=== PATIENT | female | born 1965 | race Caucasian/White ===

== ENCOUNTER → 2017-10-14 11:15 | Outpatient (CLI) | payer OTHER, SELFPAY ==
[2017-10-14 11:29] LABS: Absolute Neutrophil Count 3.4 X10^3/uL (2.0-7.7); Basophil% 0.2 % (0-1); Eosinophils% 1.2 % (0-5); Hemoglobin 17.1 g/dl (12.0-15.0); Lymphocyte # 2.12 X10^3/ul (4.0); Lymphocyte % 35.8 % (19-41); Mean Corp Hgb Conc 34.2 g/gl (32-36); Mean Corpuscular Volume 90.6 fL (81-99); Mean Platelet Vol. 10.9 fl (6.2-12.0); Monocyte% 5.4 % (0-10); Neutrophil % 57.4 % (47-70); Platelet Count 248 K/mm3 (150-450); RBC Distribution Width CV 12.6 % (11.6-14.6); RBC Distribution Width SD 41.6 fl (35.1-43.9); Red Blood Count 5.52 M/mm3 (4.2-5.4); White Blood Count 5.9 K/mm3 (4.4-11.0)
[2017-10-14 11:30] LABS: Absolute Lymphocyte Count 2.12 X10^3/ul (0.83-4.51); Basophil# 0.01 X10^3/uL; Eosinophil# 0.07 X10^3/uL; Monocyte# 0.32 X10^3/uL
[2017-10-14 11:34] LABS: ALB/GLOB Ratio 1.5 RATIO (0.9-2.4); AST(SGOT) 22 U/L (15-37); Alanine Aminotransfer ALT/SGPT 34 U/L (13-56); Albumin, Serum 4.6 g/dL (3.2-5.0); Alkaline Phosphatase 96 U/L (45-117); Anion Gap 6 (5-15); BUN 20 mg/dL (7-18); BUN/Creat Ratio 17.4 RATIO (10-20); Calcium,Total 9.6 mg/dL (8.5-10.1); Chloride 100 mmol/L (98-107); Creatinine, Serum 1.15 mg/dL (0.55-1.02); EST Glomerular Filtration Rate 52 mL/min (>60); Est Glom Filt Rate - Afr Amer 63 mL/min (>60); Globulin 3.1 g/dL (2.2-4.2); Glucose 94 mg/dL (74-106); Magnesium 2.4 mg/dL (1.6-2.6); POSITIVE COUNT NO; POSITIVE DIFFERENTIAL NO; POSITIVE MORPHOLOGY NO; Potassium 5.1 mmol/L (3.5-5.1); Protein, Total 7.7 g/dL (6.4-8.2); Sodium Level 134 mmol/L (136-145)
== END ==
PROVIDERS: Family Provider Internal Medicine; PCP Internal Medicine; Visit Provider Internal Medicine
DX: T88.7XXA Unspecified adverse effect of drug or medicament, initial encounter (principal); R00.2 Palpitations
CPT/HCPCS: 80053; 83735; 85025

== ENCOUNTER → 2018-01-09 07:48 | Outpatient (CLI) | payer OTHER, SELFPAY ==
--- NOTE | 2018-01-09 07:57 | CT_ITS ---
STUDY: CARDIAC CALCIUM SCORING - CT CHEST REASON FOR EXAM: Female, 53 years old. Screening. RADIATION DOSAGE (If Supplied By Facility): CTDIvol = ( 8.99 ) mGy, DLP = ( 179.71 ) mGycm TECHNIQUE: Axial non-enhanced images were acquired through the heart for the sole purpose of measuring coronary artery calcium. Individualized dose optimization techniques were used for this CT. COMPARISON: None. FINDINGS: Please see the patient's medical record for a personalized calcium score. The heart and pericardium are within normal limits. The visualized lungs are clear. There is a small hiatal hernia noted. Images through the upper abdomen demonstrate fatty infiltration of the liver. CT/Limited Chest CT w/CCTA IMPRESSION: Please see the patient's medical record for a personalized calcium score. Clear lungs. Small hiatal hernia. Fatty liver. Please go to: [email or web address] , for a description of the calculator. Electronically Signed: Nahid Ireland, at 17:00 EDT Tel , Service support ,
[2018-01-09 08:05] VITALS: BP 108/57; PULSE 61; RESP 16; O2SAT 97; BMI 30.9
[2018-01-09 08:26] VITALS: PULSE 60
--- NOTE | 2018-01-09 09:09 | BI_ITS ---
MAMMOGRAPHY - BILATERAL SCREENING 3-D SHERIN SYNTHESIS REASON FOR EXAM: Female, 53 years old. Bilateral Screening 3-D tomosynthesis PERTINENT HISTORY: No significant family history, previous reduction surgery. TECHNIQUE: 2-D mammograms and 3-D Sherin synthesis of the breast (s) were performed. CAD was performed. COMPARISON: 09/08/2016 FINDINGS: The breast composition is composed of scattered fibroglandular density. Scattered benign calcifications are seen. No dense spiculated masses or suspicious microcalcifications are identified. No architectural distortion is identified. There is no skin thickening or retraction. There has been no significant change since the prior study. BI/SCREENING MAMM (CAD), BILAT IMPRESSION: No mammographic signs of malignancy. Routine yearly mammograms recommended. ASSESSMENT CATEGORY: BIRADS Category 1: Negative. A letter regarding these results will be sent to the patient by the facility within 30 days. FOLLOW UP RECOMMENDATION: Yearly follow up mammogram recommended. (A) Approximately 10% of breast cancers are not detected by mammography. A normal mammogram should not delay biopsy of a clinically suspicious abnormality. Electronically Signed: Yoel Castillo MD at 8:09 EDT , Service support ,
== END ==
PROVIDERS: Family Provider Internal Medicine; PCP Internal Medicine; Visit Provider Internal Medicine
DX: E78.5 Hyperlipidemia, unspecified (principal); Z12.31 Encounter for screening mammogram for malignant neoplasm of breast; K44.9 Diaphragmatic hernia without obstruction or gangrene; K76.0 Fatty (change of) liver, not elsewhere classified
CPT/HCPCS: 75571; 76380; 77063; 77067

== ENCOUNTER → 2019-01-24 | Outpatient (CLI) | payer OTHER, SELFPAY ==
--- NOTE | 2019-01-24 09:08 | US_ITS ---
STUDY: ULTRASOUND OF THE FEMALE PELVIS - COMPLETE REASON FOR EXAM: Female, 54 years old. Postmenopausal bleeding. LMP: The patient is postmenopausal. TECHNIQUE: Transabdominal and Transvaginal TECHNICAL QUALITY: Adequate. COMPARISON: Comparison is made with prior examination dated October 30, 2012. FINDINGS: The uterus is anteverted and is in a midline position. The uterus measures 7.8 cm x 5.9 cm x 3.9 cm. There is a Nabothian cyst of the cervix. The endometrium measures 3.0 mm in thickness, and is hyperechoic. There is no demonstrated endometrial mass. There is no demonstrated myometrial mass. I.U.D. - The patient does not have an I.U.D. The right ovary is visualized. The right ovary measures 2.3 cm x 2.5 cm x 2.1 cm. Within the right ovary, there is a 2.1 cm x 1.8 signed by 1.5 cm cyst. This is a simple cyst. There is no visualized right adnexal mass or complex lesion. There is normal arterial and normal venous vascularity. The left ovary is visualized. The left ovary measures 2.6 cm x 2.6 cm x 1.2 cm. There is no left ovarian cyst or ovarian mass. There is no visualized left adnexal mass or complex lesion. There is normal arterial and normal venous vascularity. There is no fluid in the cul-de-sac. The pre void volume of the bladder was 246 ml. Polycystic ovary disease: No. US/Pelvic (Non ) IMPRESSION: 2.1 cm x 1.8 cm x 1.5 cm cyst in the right ovary. This is essentially unchanged as compared to prior study. Electronically Signed: Kem Pool, at 9:03 EDT , Service support ,
--- NOTE | 2019-01-24 09:21 | US_ITS ---
STUDY: ULTRASOUND OF THE FEMALE PELVIS - COMPLETE REASON FOR EXAM: Female, 54 years old. Postmenopausal bleeding. LMP: The patient is postmenopausal. TECHNIQUE: Transabdominal and Transvaginal TECHNICAL QUALITY: Adequate. COMPARISON: Comparison is made with prior examination dated October 30, 2012. FINDINGS: The uterus is anteverted and is in a midline position. The uterus measures 7.8 cm x 5.9 cm x 3.9 cm. There is a Nabothian cyst of the cervix. The endometrium measures 3.0 mm in thickness, and is hyperechoic. There is no demonstrated endometrial mass. There is no demonstrated myometrial mass. I.U.D. - The patient does not have an I.U.D. The right ovary is visualized. The right ovary measures 2.3 cm x 2.5 cm x 2.1 cm. Within the right ovary, there is a 2.1 cm x 1.8 signed by 1.5 cm cyst. This is a simple cyst. There is no visualized right adnexal mass or complex lesion. There is normal arterial and normal venous vascularity. The left ovary is visualized. The left ovary measures 2.6 cm x 2.6 cm x 1.2 cm. There is no left ovarian cyst or ovarian mass. There is no visualized left adnexal mass or complex lesion. There is normal arterial and normal venous vascularity. There is no fluid in the cul-de-sac. The pre void volume of the bladder was 246 ml. Polycystic ovary disease: No. US/Transvaginal Non- IMPRESSION: 2.1 cm x 1.8 cm x 1.5 cm cyst in the right ovary. This is essentially unchanged as compared to prior study. Electronically Signed: Kem Pool, at 9:03 EDT , Service support ,
== END | disposition home or self-care (01) ==
PROVIDERS: Family Provider Internal Medicine; PCP Internal Medicine; Referring Provider Internal Medicine; Visit Provider Internal Medicine
DX: N95.0 Postmenopausal bleeding (principal)
CPT/HCPCS: 76830; 76856

== ENCOUNTER → 2019-02-26 16:23 | Outpatient (CLI) | payer OTHER, SELFPAY ==
--- NOTE | 2019-02-26 | EMB_PTH ---
PATIENT: JESSIE RAYMOND LOC: [facility] U#:[id number] AGE/SX: 60/F ROOM: RE02/26/[address]: Dr. Veena Blevins MD : 1965 BED: DIS: SPEC #: [id number] RECD: 02/26/19 16:04 STATUS: PRASHANTH ANDRÉS #: [id number] YANE: 02/26/19 00:[address]: Veena Blevins DEPT: SURGICAL PATHOLOGY RECD BY: Triston Nesbitt ENTERED: 02/27/19 08:59 SP TYPE: ENDOM BX/C GUME DR: Dr. Natasha Chance MD Tissues: Endometrium, NOS Procedures: Surgery Specimen Level IV HEADER OPERATION: Endometrial biopsy PRE-OP DIAGNOSIS: Abnormal uterine bleeding TISSUE SUBMITTED: Endometrial biopsy MICROSCOPIC DIAGNOSIS Endometrial biopsy: A fragment of benign endocervical mucosa, consistent with benign endocervical polyp. Fragments of mucoid tissue. Endometrial tissue is not identified in the submitted specimen. ARTUR:ashvin 02/28/19 COMMENT Correlation with clinical findings and appropriate follow up are necessary. Repeat biopsy is suggested if clinically indicated. MICROSCOPIC DESCRIPTION Slides are reviewed. GROSS DESCRIPTION Received is one container labeled with the patient's name and not further designated. The specimen consists of light christianson mucoid material aggregating to 2 x 2 x 0.2 cm. The specimen is totally submitted in one cassette. / AM:ashvin 02/27/19 TC:5 CPT: 53557
[2019-02-26 13:32] VITALS: BMI 30.9
== END ==
PROVIDERS: Family Provider Internal Medicine; PCP Internal Medicine; Referring Provider Obstetrics & Gynecology; Visit Provider Obstetrics & Gynecology
DX: N93.9 Abnormal uterine and vaginal bleeding, unspecified (principal)
CPT/HCPCS: 88305

== ENCOUNTER → 2019-04-04 13:59 | Outpatient (CLI) | payer OTHER, SELFPAY ==
[2019-02-26 13:32] VITALS: BMI 30.9
--- NOTE | 2019-04-04 14:04 | BI_ITS ---
MAMMOGRAPHY - BILATERAL DIAGNOSTIC REASON FOR EXAM: Female, 54 years old. Bilateral breast tenderness. PERTINENT HISTORY: Non-contributory. History of prior bilateral breast reduction surgery. TECHNIQUE: Digital bilateral breast lidia (3D mammographic acquisition) in the CC and MLO projections. 2-D mediolateral oblique (MLO) and craniocaudad (CC) views of both breasts were obtained. CAD: Full Field Digital Mammography with Computer Added Detection was performed. COMPARISON: Comparison is made with prior study dated January 09, 2018 and September 08, 2016. FINDINGS: Breast Composition: There are scattered areas of fibroglandular density. There are no dominant masses or suspicious calcifications. Stable asymmetry of breast tissue or more breast tissue is seen in the upper outer quadrant of the right breast as compared to the left side. This is unchanged. No other significant abnormalities are identified. There has been no significant change since the prior study. BI/DIAG MAMM W/CAD, BILAT IMPRESSION: Stable bilateral diagnostic mammogram. One year follow-up recommended. (A) ASSESSMENT CATEGORY: BIRADS Category 2: Benign. A letter regarding these results will be sent to the patient by the facility within 30 days. Approximately 10% of breast cancers are not detected by mammography. A normal mammogram should not delay biopsy of a clinically suspicious abnormality. Electronically Signed: Kem Pool, at 15:41 EDT , Service support ,
--- NOTE | 2019-04-04 14:05 | US_ITS ---
STUDY: ULTRASOUND BREAST - RIGHT REASON FOR EXAM: Female, 54 years old. Right axillary swelling. TECHNIQUE: Axial and longitudinal images of the RIGHT breast were performed with a high resolution ultrasound transducer. COMPARISON: Comparison is made with prior mammogram done earlier in the day. FINDINGS: RIGHT Breast: The right axillary and right retroareolar regions were examined by ultrasound. There is a 2.3 cm x 2.3 cm x 0.9 cm hypoechoic nodule with central increased echotexture suggestive of a benign appearing lymph node in the right axillary region. IMPRESSION: Findings suggestive of a 2.3 cm x 2.3 cm x 0.9 cm benign-appearing lymph node in the right axilla. ASSESSMENT CATEGORY: BIRADS Category 2: Benign. A letter regarding these results will be sent to the patient by the facility within 30 days. Electronically Signed: Kem Pool, at 9:01 EDT , Service support , STUDY: ULTRASOUND BREAST - LEFT REASON FOR EXAM: Female, 54 years old. Painful left breast. TECHNIQUE: Axial and longitudinal images of the LEFT breast were performed with a high resolution ultrasound transducer. COMPARISON: Comparison is made with prior mammogram done earlier in the day. FINDINGS: LEFT Breast: The upper inner quadrant of the left breast was examined by ultrasound. There is a homogeneous fibroglandular tissue. No sonographic abnormality is seen. US/Breast Limited Unilateral IMPRESSION: No sonographic abnormality is seen. ASSESSMENT CATEGORY: BIRADS Category 1: Negative. A letter regarding these results will be sent to the patient by the facility within 30 days. Electronically Signed: Kem Pool, at 9:03 EDT , Service support ,
== END ==
PROVIDERS: Family Provider Internal Medicine; PCP Internal Medicine; Referring Provider Internal Medicine; Visit Provider Internal Medicine
DX: N64.4 Mastodynia (principal); N63.20 Unspecified lump in the left breast, unspecified quadrant; M79.89 Other specified soft tissue disorders
CPT/HCPCS: 76642; 77062; 77066; G0279

== ENCOUNTER → 2019-07-02 09:31 | Outpatient (CLI) | payer OTHER, SELFPAY ==
[2019-02-26 13:32] VITALS: BMI 30.9
--- NOTE | 2019-07-02 09:39 | RAD_ITS ---
HISTORY: LEFT LATERAL RIB PAIN DUE TO COUGHING EXAM: XR Chest 2 Views: COMPARISON: None FINDINGS: # of images incl. paperwork: 2 Lungs are clear. Heart is not enlarged. No acute osseous pathology perceived. Pulmonary vascularity is distinct. No effusions. RAD/Chest PA and Lateral IMPRESSION: Normal. at 0357 Reported and signed by: Salinas Díaz MD Electronically Signed: Salinas Díaz MD at 3:56 EST Tel , Service support ,
--- NOTE | 2019-07-02 09:40 | RAD_ITS ---
HISTORY: Left lateral rib pain after coughing. 4 views of the left ribs. Comparison study is a limited chest CT from January 09, 2018 Findings: 4 views of the left ribs were obtained. No acute rib fracture. No pleural fluid or pneumothorax. RAD/Ribs Unil 2V No CXR IMPRESSION: No acute fracture of left ribs. at 0359 Reported and signed by: Salinas Díaz MD Electronically Signed: Salinas Díaz MD at 3:58 EST Tel , Service support ,
== END ==
PROVIDERS: Family Provider Internal Medicine; PCP Internal Medicine; Referring Provider Internal Medicine; Visit Provider Internal Medicine
DX: R07.81 Pleurodynia (principal); R05 Cough
CPT/HCPCS: 71046; 71100

== ENCOUNTER → 2019-08-29 07:25 | Outpatient (CLI) | payer OTHER, SELFPAY ==
[2019-07-31 12:20] VITALS: BMI 31.8
--- NOTE | 2019-08-29 07:28 | MRI_ITS ---
STUDY: MRI LUMBAR SPINE WITHOUT CONTRAST REASON FOR EXAM: Female, 54 years old. Low back pain TECHNIQUE: Standardized fat and water weighted pulse sequences were obtained in the sagittal and axial planes. COMPARISON: July 26, 2019 FINDINGS: lumbar spine is intact and aligned. Marrow, paraspinous soft tissues and SI joints are unremarkable. There is L1-L2 disc degeneration. Conus medullaris terminates at the appropriate level with unremarkable cauda equina. L5-S1 has a large central disc extrusion with minor degree of compression of the thecal sac. There is left lateral recess stenosis and proximity of herniated disc material to both left and right S1 traversing nerve roots. Foramina are patent bilaterally. Remainder of the thecal sac is patent. MRI/Spine Lumbar (Routine) IMPRESSION: 1. Large L5-S1 central disc extrusion with left S1 nerve root compression in the lateral recess. Electronically Signed: Heather Cortez, at 17:35 EDT Tel , Service support ,
== END ==
PROVIDERS: PCP Internal Medicine; Referring Provider Chiropractor; Visit Provider Chiropractor
DX: M54.16 Radiculopathy, lumbar region (principal)
CPT/HCPCS: 72148

== ENCOUNTER 2019-11-28 08:39 | Outpatient (RCR) | payer OTHER, SELFPAY ==
[2019-11-27 09:29] VITALS: BMI 30.9
--- NOTE | 2019-11-28 10:01 | HP.PTEVAL_ITS ---
Patient's Visit Information JESSIE RAYMOND is a 54 year old F referred to Physical Therapy by Dr. Alina Ramos MD with a diagnosis of Lumbar Radiculopathy. Date of Evaluation: 11/28/19 Physical Therapist: Steffanie Veras DPT - Visit Plan Frequency: 1x/Week Duration: 2 Weeks Plan: Home Exercises Program in the pool - Subjective Patient reports that she sneezed and she was assisted bent over and she felt something go Thanksgiving. Has had an x-ray, MRI and chiropractic. Trying to schedule surgery- thinking about a month out. Is going to daughters pool- she can go daily- wants a home program to perform in the pool. Pain at its worst: 8/10 - radiates down her left LE. Agg: standing, sitting, bending, anything Eases: pool and changing positions- massage. Best: 2-3/10 on a good day. Much better in the AM compared to the PT. Describes the pain as dull and achy and sharp shooting- Pain is located on only on the left side but does have muscle spasms across the entire back. Plans to have surgery at [facility]. Prior to accident very active ride horses- has 12 grandchildren that keep her very active- is not currently carrying grandchildre but is unable due to back issues. N/T down the left leg that comes and goes- mostly towards the end of the day. Work: does not work outside of her home. Sleep: meds to help but yes its hard to get comfortable- side sleeper on the right. PMHx: asthma Meds: inhaler as needed - Objective Posture: severe guarding- forwards posture-unable to remain fully erect. Gait: antalgic- decreased stance on the left LE- poor heel/toe pattern and had to stop multiple times due to pain. HR/TR: able with pain. SLS: able for 15 then LOB. ROM: unable due to pain- all motions limited by 90%. Strength:Core: fair minus, LE: 4+/5 throughout with pain testing left LE. Special Test: slump left positive SLR: positive right. Challenged to complete objective evaluation as pain was increased with all mobility - Goals Goal 1:: Patient will be I with HEP and progression Goal Time Frame: 4-6 Weeks - Rehabilitation Potential Physical Therapy Diagnosis: Patient presents with hypmobility- she has decreased rom, strength, flex and muscular endurance leading to poor posture and increased pain with all ADL's. Rehabilitation Potential: Fair - Anticipated Interventions Patient/Client Instruction: Educate patient on: Benefits of Fitness Program Therapeutic Exercise to Include: Strength training, Endurance training, Balance training, Coordination, Agility training, Body mechanics, Postural training, Flexibilty training, Gait and locomotor training, Neuromotor development, In an aquatic setting, Passive ROM, Active ROM, Dynamic Lumbar Stabilization For the Purpose of:: To improve muscle performance and motor function Thank you for the opportunity to evaluate your patient. For Medicare and Medicare HMO plans, please review the plan of care and approve it. It will need to be FAXED BACK to us at [phone] for Medicare purposes. For Medicare only, by signing this I certify the plan of care. Please let me know if there are questions or concerns regarding this plan of care. Physician Signature:_ Date:
== END 2019-11-28 19:00 | disposition home or self-care (01) ==
LOC: PT 08:39
PROVIDERS: PCP Internal Medicine; Referring Provider Orthopaedic Surgery; Visit Provider Orthopaedic Surgery
DX: M54.16 Radiculopathy, lumbar region (principal)
CPT/HCPCS: 97113; 97161

== ENCOUNTER 2020-01-01 19:27 | Observation (INO) | payer OTHER, SELFPAY ==
[2019-11-27 09:29] VITALS: BMI 30.9
[2019-12-27 10:51] LABS: Bacteria 0 SEEN /hpf (None Seen); Red Blood Cells-Urine 0 SEEN /hpf (0-5)
[2019-12-27 11:36] LABS: Color, Urine Yellow (Yellow); Glucose, Dipstick Normal (Normal); Ketone-Dipstick Negative (Negative); Leukocyte Esterase-Dipstick 25 /ul (Negative); Nitrite-Dipstick Negative (Negative); Occult Blood-Urine Negative /ul (Negative); Protein-Dipstick Negative (Negative); Specific Gravity, Urine 1.015 (1.002-1.030); Urine Bilirubin Dipstick Negative (Negative); Urine Clarity Clear (Clear); Urine Urobilinogen Normal (Normal)
[2019-12-27 11:42] LABS: Mucous, Urine 1+ /hpf (<or=2+); Squamous Epithelial Cells - UA 0-5 SEEN /hpf (5-10); White Blood Cells 0-5 SEEN /hpf (0-5)
[2019-12-27 13:11] LABS: Prothrombin Time (Protime)PT. 12.2 SECONDS (11.7-14.9)
[2019-12-27 13:12] LABS: Partial Thromboplast Time 25.2 Seconds (24.1-36.2)
[2020-01-01] VITALS (16 sets, daily range): BP systolic 108–159; BP diastolic 48–86; PULSE 78–108; RESP 16; TEMP 36.1–37.3; O2SAT 93–99; BMI 32.3
[2020-01-01] MEDS: Lactated Ringers 1,000 ML 100 ML IV ×2 (11:58→16:39)
[2020-01-01] MEDS: Cefazolin 2 GM in 0.9% Normal Saline 100 ML IV (12:30)
--- NOTE | 2020-01-01 12:30 | DISC_PTH ---
PATIENT: JESSIE RAYMOND LOC: [facility] U#:[id number] AGE/SX: 54/F ROOM: AZ312 RE01/01/[address]: Dr. Alina Ramos MD : 1965 BED: 1 DIS: 01/03/2020 SPEC #: [id number] RECD: 01/01/20 15:55 STATUS: PRASHANTH REShemar #: [id number] YANE: 01/01/20 12:[address]: Alina Ramos DEPT: SURGICAL PATHOLOGY RECD BY: Triston Nesbitt ENTERED: 01/02/20 11:10 SP TYPE: DISC OTHR DR: MD Dr. Natasha Dias MD Tissues: Intervertebral disc, NOS Procedures: Decalcification bone/plaque Surgery Specimen Level III HEADER OPERATION: Microdiscectomy L5-S1 PRE-OP DIAGNOSIS: Lumbar radiculopathy TISSUE SUBMITTED: Left L5-S1 disc MICROSCOPIC DIAGNOSIS L5-S1 disc: Pieces of fibrocartilage and hyaline cartilage with reactive changes, clinically lumbar radiculopathy. ARTUR:ashvin 01/07/20 MICROSCOPIC DESCRIPTION Slides are reviewed. GROSS DESCRIPTION Received in fixative is one container labeled with the patient's name and designated L5-S1 disc. The specimen consists of multiple fragments of christianson, indurated tissue mixed with possible fragments of bone that in aggregate measure 2.5 x 2.5 x 0.3 cm. The specimen is totally submitted in one cassette after decalcification. / ARTUR:ashvin 01/02/20 TC:5 CPT: 43773, [id number]
--- NOTE | 2020-01-01 12:30 | RAD_ITS ---
PROCEDURE: L5-S1 discectomy. DATE OF EXAMINATION: January 01, 2020 INDICATION: Female, 54 years old. Low back pain. FLUOROSCOPY TIME (if supplied): (14 seconds) minutes/seconds Metallic probe is seen overlying the posterior aspect of the L5-S1 level. RAD/Spine 1 View Any Level IMPRESSION: Metallic probe overlying the posterior aspect of the L5-S1 disc space level. Electronically Signed: Kem Pool, at 9:16 EDT , Service support ,
[2020-01-01] MEDS: THROMBIN (RECOMBINANT) 20,000 UNIT VIAL 20000 UNIT TOPICAL (13:26)
--- NOTE | 2020-01-01 14:45 | PCM.OPRPT ---
Problem List (1) Lumbar radiculopathy Status: Acute Report of Operation Date of Procedure: 01/01/20 Pre-Operative Diagnosis: left L5-S1 disc herniation Post-Operative Diagnosis: left L5-S1 disc herniation Surgery/Procedure Performed:: left L5-S1 microdiscectomy Description of Surgical Findings:: Operative Report DATE PERFORMED: 01/01/2020 PREOPERATIVE DIAGNOSIS: left L5-S1 paracentral disk protrusion with left S1 radiculopathy. POSTOPERATIVE DIAGNOSIS: eft L5-S1 paracentral disk protrusion with left S1 radiculopathy. PROCEDURES: 1. left L5-S1 microdiskectomy. 2. Use of intraoperative microscope. 3. Use of intraoperative fluoroscopy. SURGEON: Alina Ramos MD. RADIATION CONTROL TECHNICIAN: first shannan Serna. ANESTHESIA: General. ESTIMATED BLOOD LOSS: Minimal/ DRAINS: None. COMPLICATIONS: None INDICATIONS FOR PROCEDURE: Ms. Hill is a 54-year-old female, who presents with back pain and left S1 radiculopathy. His preoperative imaging demonstrated a left L5-S1 paracentral disk protrusion with displacement of the left S1 traversing nerve root. She has failed nonoperative treatment to include physical therapy and medications. Given she has been refractory to conservative treatment and is significantly affected in her quality of life, a left L5-S1 microdiskectomy was recommended. The patient agreed to comply with the treatment plan formulated. DESCRIPTION OF PROCEDURE: The patient was correctly identified as Lisa Hill, in the preoperative holding area. Consent was verified. All questions were answered. The risks and benefits of the procedure including, but not limited to pain, infection, bleeding, failure of the operation, need for reoperation, damage to nerve, tendon, vessel, muscle; risk of anesthesia, risk of durotomy, reherniation, risk of paralysis, instability, continued pain, DVT/PE, and blindness were discussed in detail. The patient agreed to comply with the treatment plan. The surgical site was marked. She was taken to operating suite 1, where she underwent general anesthesia by anesthesia colleagues uneventfully. Preoperative antibiotics were initiated. BI hose and SCDs were placed on bilateral lower extremities for DVT prophylaxis. The patient was then placed prone on the open Asa frame with a sling. All bony prominences were well padded. Her neck was ensured in the neutral position. His back was then sterilely prepped and draped in the usual sterile fashion. A surgical pause was performed to confirm the patient and procedure. The operation was then begun. A spinal needle was placed in the area of L5-S1 interspace. Intraoperative fluoroscopy confirmed the operative level. A midline longitudinal incision was then made down to the subcutaneous tissue to the lumbodorsal fascia. This was cleared off the left-hand side. A full-thickness incision was then made on the left side of midline. A subperiosteal dissection was then performed to dissect the paraspinal musculature off the posterior midline structures. A self-retaining tube was then placed over the L5-S1 interspace. Intraoperative fluoroscopy was obtained to confirm the operative level. The microscope was then brought in for the remainder of the procedure. The inferior edge of the L5 lamina was identified. The ligamentum flavum was lifted up off the leading edge of the S1 lamina and the inferolateral portion of the L5 lamina was resected with a Kerrison rongeur. The ligamentum flavum was then removed in its entirety. The traversing S1 nerve root was noted to be very vascular and hyperemic. The nerve root was then gently retracted medially and a disk protrusion was encountered. A [place] 4 was used to violate the pseudomembrane. Loose fragments of the disk were then resected with a micropituitary. The disk was then irrigated and all loose fragments were then resected. The wound was then thoroughly irrigated. A Susi was then used to trace the shoulder of the S1 nerve root out its foramen with no evidence of residual stenosis. At this point, the decompression was deemed complete. The wound was then thoroughly irrigated. Hemostasis obtained. A Valsalva of 40 mmHg was performed with no evidence of CSF egress. Next, 1% lidocaine with epinephrine mixed with 0.25% Marcaine was placed over the nerve root, approximally 0.5 cc. The fascia was then closed with 0 Vicryl in interrupted etbstl-[id number] fashion, followed by 2-0 Maxon to close the subcutaneous tissue and a running 3-0 Monocryl to close the subcuticular tissue. Dermabond was then applied. A sterile dressing was then placed. The patient tolerated the procedure well. There were no complications. She was then placed supine on the hospital bed, extubated, and transferred to the postanesthesia care unit in stable condition. Needle and sponge counts were correct at the end of the procedure. concrete paving supervisor: Rom Cordova Type of Anesthesia:: General Anesthesiologist: Marcos Reardon Specimen's removed: L5-S1 disc Drains: none Estimated Blood Loss (mL): minimal - Admit VTE Documentation VTE Present on Admission: Yes VTE Mechan Device Prophylaxis: SCD's VTE Pharm Prophylaxis ordered?: No
[2020-01-01] MEDS: Bupiv/Epi 0.25% 30 ML Vial (14:51)
--- NOTE | 2020-01-01 14:53 | DCINST_ITS ---
You will use the following diet at home:: Regular Your food should be the consistency of: Regular Discharge Activity: - - no bending, twisting, or lifting greater than 5 pounds May shower in (days): 5 Ice area for (Minutes): 30 Weight Bearing Status: Weight bearing as tolerated Call your doctor if your incision/area has: Continuous Slow Oozing, Sudden Increased Bleeding, Increased Pain/ Swelling, Increased Redness, Foul Smelling Discharge, Swelling at the incision site Call your doctor if you observe: Fever of 101 or Higher, Coldness, Increased Pain, Inability to urinate, Inability to have a bowel movement, Shortness of breath, Dizziness, Uncontrolled pain Suture Line Care: Avoid Pulling/Pushing, Avoid Pinching/Bending Change Dressing in (Days):: 2 Remove Dressing in (days):: 2 Cleanse incision/area with: Keep Dressing Clean & Dry Allergies/Adverse Reactions: Allergies meperidine [From Demerol] Allergy (Verified 12/18/19 10:03) unknown Medications to take at Discharge Albuterol IH (ProAir) [Proair Hfa] 1 - 2 puff INHALATION Q6H PRN PRN 12/18/19 Carboxymethylcellulose Sodium [Lubricant Eye Drop] 15 ml OP BID 12/18/19 Gabapentin [Neurontin] 300 mg PO BID 12/18/19 Hydrocortisone 1 applic TOPICAL BID PRN 12/18/19 Mometasone/Formoterol [Dulera 100 Mcg-5 Mcg Inhaler] 1 puff IH PRN PRN 12/18/19 Paroxetine HCl [Paxil Cr] 12.5 mg PO QHS 12/18/19 traZODone [Desyrel] 50 mg PO QHS 12/18/19 Hydrocodone/Acetaminophen [[place] 5-325 Tablet] 2 each PO 4X/DAY PRN PRN 7 Days #48 tablet 01/01/20 The following prescriptions were given: Hydrocodone/Acetaminophen [[place] 5-325 Tablet] 2 each PO 4X/DAY PRN PRN 7 Days #48 tablet PRN Reason: Pain/Inflammation Transmission Status: Received by [facility]/pharmacy #[id number] Primary Care Physician: Natasha Chance MD [Primary Care Provider] - Test Results: Test results from this visit will be discussed in further detail at your follow- up appointment, if applicable.
--- NOTE | 2020-01-01 14:55 | DS.PCM_ITS ---
Discharge Date and Diagnosis Date of Admission: 01/01/20 Date of Discharge: 01/01/20 - Primary Discharge Diagnosis Acute Problems: lumbar radiculopathy Hospital Course and Treatment Imaging Results: 01/01/20 12:30 O.R. Fluoro for C-Arm [RAD] Routine Spine 1 View Any Level [RAD] Routine Operations: - - left L5-S1 microdiscectomy Summary of Care Provided: The patient is a 54 year old F [] - Physical Exam Vitals/I&O's: Vital Signs Temp Pulse Resp BP Pulse Ox 99.2 F H 89 16 130/48 H 96 01/01/20 11:51 01/01/20 11:51 01/01/20 11:51 01/01/20 11:51 01/01/20 11:51 Oxygen Delivery Method Room Air Weight: 182 lb 5.156 oz Body Mass Index (BMI) 32.3 Intake and Output for Last 24 Hours 12/30/19 12/31/19 01/01/20 23:59 23:59 23:59 Intake Total 110 / 110 Balance 110 / 110 Current Medications Lactated Ringer's () 1,000 mls @ 100 mls/hr IV .Q10H [facility] Last Admin: 01/01/20 11:58 Dose: 100 mls/hr Documented by: Discharge Activity: - - no bending, twisting, or lifting greater than 5 pounds May shower in (days): 5 Ice area for (Minutes): 30 Weight Bearing Status: Weight bearing as tolerated Call your doctor if your incision/area has: Continuous Slow Oozing, Sudden Increased Bleeding, Increased Pain/ Swelling, Increased Redness, Foul Smelling Discharge, Swelling at the incision site Call your doctor if you observe: Fever of 101 or Higher, Coldness, Increased Pain, Inability to urinate, Inability to have a bowel movement, Shortness of breath, Dizziness, Uncontrolled pain Suture Line Care: Avoid Pulling/Pushing, Avoid Pinching/Bending Change Dressing in (Days):: 2 Remove Dressing in (days):: 2 Cleanse incision/area with: Keep Dressing Clean & Dry Home Medications: Medications to take at Discharge Albuterol IH (ProAir) [Proair Hfa] 1 - 2 puff INHALATION Q6H PRN PRN 12/18/19 Carboxymethylcellulose Sodium [Lubricant Eye Drop] 15 ml OP BID 12/18/19 Gabapentin [Neurontin] 300 mg PO BID 12/18/19 Hydrocortisone 1 applic TOPICAL BID PRN 12/18/19 Mometasone/Formoterol [Dulera 100 Mcg-5 Mcg Inhaler] 1 puff IH PRN PRN 12/18/19 Paroxetine HCl [Paxil Cr] 12.5 mg PO QHS 12/18/19 traZODone [Desyrel] 50 mg PO QHS 12/18/19 Hydrocodone/Acetaminophen [[place] 5-325 Tablet] 2 each PO 4X/DAY PRN PRN 7 Days #48 tablet 01/01/20 Following Prescrptions Were Given to Patient: Hydrocodone/Acetaminophen [[place] 5-325 Tablet] 2 each PO 4X/DAY PRN PRN 7 Days #48 tablet PRN Reason: Pain/Inflammation Transmission Status: Received by [id number] Primary Care Physician: Natasha Chnace MD [Primary Care Provider] - Medical Necessity - Tobacco Use Smoking Status: Former smoker Tobacco Use: Non-smoker Meaningful Use Info Meaningful Use Diagnoses (Choose all that apply): None applicable
[2020-01-01] MEDS: HYDROcodone Bitartrate/Apap 5/325 Tablet PO (16:18)
[2020-01-01] MEDS: 0.9% Normal Saline 1,000 ML 150 ML IV (20:00)
--- NOTE | 2020-01-01 21:16 | SUR.PHASEII ---
1840 PT ASSISTED WITH AMBULATION , PT DENIES DIZZINESS OR NAUSEA . PT ABLE TO VOID W/O DIFFICULTY.
--- NOTE | 2020-01-01 21:19 | PCM.PN.SRG ---
Subjective: Patient with nausea and vomited in recovery. Patient and wish to stay overnight. Patient has voided and ambulated per nursing. - Physical Exam Vitals/I&O's: Vital Signs Temp Pulse Resp BP Pulse Ox 97.6 F L 107 H 16 147/73 H 97 01/01/20 20:53 01/01/20 20:53 01/01/20 20:53 01/01/20 20:53 01/01/20 20:53 Oxygen Flow Rate (L/min) 3 Oxygen Delivery Method Room Air Weight: 182 lb 5.156 oz Body Mass Index (BMI) 32.3 Intake and Output for Last 24 Hours 12/30/19 12/31/19 01/01/20 23:59 23:59 23:59 Intake Total 2109 Balance 2109 Current Medications Hydrocodone Bitart/Acetaminophen ([place] 5mg-325mg) 1 - 2 tablet PO Q6H PRN PRN PRN Reason: Pain Score 1-10/10 Gabapentin (Neurontin) 300 mg PO TIDCM [facility] Lactated Ringer's () 1,000 mls @ 100 mls/hr IV .Q10H [facility] Last Infusion: 01/01/20 20:24 Dose: Infused Documented by: Sodium Chloride () 1,000 mls @ 150 mls/hr IV .Q6H40M [facility] Stop: 01/02/20 00:00 Last Admin: 01/01/20 20:00 Dose: 150 mls/hr Documented by: Ibuprofen (Motrin) 800 mg PO Q8 [facility] Ondansetron HCl (Zofran) 8 mg PO Q6H PRN PRN PRN Reason: NAUSEA Paroxetine HCl (Paxil Cr) 12.5 mg PO QHS [facility] Medical Necessity - Tobacco Use Smoking Status: Former smoker Tobacco Use: Non-smoker Assessment/Plan All Active Problems (Last Reviewed 08/30/19 @ 14:06 by Lindy Valadez) Herniation of lumbar intervertebral disc with radiculopathy (Acute) Segmental and somatic dysfunction of cervical region (Acute) Segmental and somatic dysfunction of thoracic region (Acute) Segmental and somatic dysfunction of pelvic region (Acute) Segmental and somatic dysfunction of lumbar region (Acute) Lumbar radiculopathy (Acute) Perirectal skin irritation (Acute) Post-menopausal bleeding (Acute) 1. status post left L5-S1 microdiscectomy 01/01/2020 2. postop nausea Patient neurologically intact Complaints of nausea. Plan for admission for 23 hours observation for pain control and monitoring. Plan of care discussed with patient?s . Orders provided to nursing as well as plan of care. All questions answered. Family verbalized understanding and was appreciative of care. Patient to be admitted under Dr. Jennifer Rothman and will be seen by my PA, Jah Darling PA-C. In compliance with the laws of the [facility] Medical Board of [place], the following conditions have been met for extending the dose or duration of opioid pain medication for the treatment of acute pain. Diagnosis: Pain following surgery or procedure (ICD10 G89.18) 7 day limit exceeded due to pain that is expected to persist longer than 7 days. Pathology of pain: spine surgery 30 MED average exceeded due to: spine surgery Reason for exceeding the 30 MED average: Pain after orthopedic surgery not yet acceptably controlled by non-opioid medication. This is the lowest dose need for her medical condition. The patient's account was reviewed on the [place] Automated Rx Reporting System: OAARS. Their controlled substance medication history was found to be aligned with health and medication history. Patient has had no adverse outcomes with this medication.
[2020-01-01] MEDS: Ibuprofen 400 MG Tablet 800 MG PO (21:28)
[2020-01-01] MEDS: Gabapentin 300 MG Capsule PO (21:28)
[2020-01-01] MEDS: Glycerin/Hypromellose/PEG400 15 ml Bottle 15 DRP EACH EYE (21:34)
[2020-01-01] MEDS: PARoxetine CR 12.5 MG Tablet PO (23:42)
[2020-01-02] VITALS (12 sets, daily range): BP systolic 103–145; BP diastolic 60–86; PULSE 75–108; RESP 16–20; TEMP 36.4–37.1; O2SAT 94–99
[2020-01-02] MEDS: HYDROcodone Bitartrate/Apap 5/325 Tablet PO ×2 (01:06→08:44)
--- NOTE | 2020-01-02 01:10 | NURSING ---
Juan DUNN asked me to come and see this pt because she was acting strange. She told him she thought she was dying. When I entered the room and tried to talk to her she was not speaking very clearly and she was exhibiting movements that I guess I would describe as spastic along with what appeared to be tremors at times. As we talked longer her speech became more clear. She said she coughed and then she was unable to speak and had a headache rated at a 10. While I was in the room Juan DUNN checked her pupils and reported that they were equal and reactive, she had good push/pull strength, and her dressing was D&I. As we talked further, the pt asked me if I thought it was a migraine. I stated that I didn't think a migraine came and went that quickly. Then she asked me if I thought it was a bleeder. Pt is definitely anxious.
--- NOTE | 2020-01-02 01:52 | CON.PCM_ITS ---
Problem List (1) Migraine Status: Acute Qualifiers: Migraine type: unspecified Intractability: intractable (2) Anxiety and depression Status: Chronic (3) Asthma Status: Chronic Qualifiers: Asthma severity: unspecified severity Asthma persistence: unspecified Asthma complication type: unspecified Qualified Code(s): J45.909 - Unspecified asthma, uncomplicated (4) Herniation of lumbar intervertebral disc with radiculopathy Status: Chronic Comment: L5/S1 (5) Lumbar radiculopathy Status: Chronic Reason for Consult Date of Consultation: 01/02/20 Reason for Consultation: Medical consultation History of Present Illness: The patient is a 54 y/o F w/ PMHx: Migraines, Anxiety and Depression, Asthma, HLD, Allergic Rhinitis, Chronic back pain who recently presented to the [facility] on 01/01/20 for planned left L5-S1 microdiscectomy secondary to left L5-S1 paracentral disc protrusion with left S1 radiculopathy associated with no intraoperative event however following transition to PACU patient reportedly had onset of headache with nausea and emesis x2 bouts with spastic upper extremity movements therefore she was kept for continued observation. Patient transition to the floor and while in medical surgical floor had similar episode however she reported at that time following a significant cough she had onset of diffuse although she notes more severe frontal and posterior throbbing and stabbing 10 out of 10 headache with light and sound sensitivity consistent with a migraine in addition to transient episodes of upper extremity spasticity noted per nurse however upon physician evaluation only shivering is noted and mild tremor but nothing consistent with prior spasticity. Patient per report is also had halting voice but upon evaluation per physician following discussions this continue to improve when she is relaxed. Discussed patient's case and status as well as physical examination with patient's surgeon who agreed with CT head and treatment of complex migraine including Depacon, Decadron, Toradol scheduled and continuation of recently initiated gabapentin. Upon evaluation she noted headache ongoing with continued light and sound sensitivity although improved since initial onset, previously rated 10 out of 10 as noted, currently 5-6 out of 10 in severity. Past Medical History Past Medical History (Chronic Problems): Chronic Problems (Last Reviewed 08/30/19 @ 14:06 by Lindy Valadez) Anxiety and depression (Chronic) Asthma (Chronic) Herniation of lumbar intervertebral disc with radiculopathy (Chronic) L5/S1 Lumbar radiculopathy (Chronic) Medical History: Medical History (Last Reviewed 08/30/19 @ 14:06 by Lindy Valadez) Anxiety F41.9 Environmental allergies Z91.09 High cholesterol E78.00 Allergies meperidine [From Demerol] Allergy (Verified 12/18/19 10:03) unknown Home Medications: Ambulatory Orders Medication Instructions Recorded Albuterol IH (ProAir) [Proair Hfa] 1 - 2 puff INHALATION Q6H PRN PRN 12/18/19 Carboxymethylcellulose Sodium 15 ml OP BID 12/18/19 [Lubricant Eye Drop] Gabapentin [Neurontin] 300 mg PO BID 12/18/19 Hydrocortisone 1 applic TOPICAL BID PRN 12/18/19 Mometasone/Formoterol [[place]ulera 100 1 puff IH PRN PRN 12/18/19 Mcg-5 Mcg Inhaler] Paroxetine HCl [Paxil Cr] 12.5 mg PO QHS 12/18/19 traZODone [Desyrel] 50 mg PO QHS 12/18/19 Hydrocodone/Acetaminophen [[place] 2 ea PO 4X/DAY PRN PRN 7 Days #48 01/01/20 5-325 Tablet] tab Surgical History: Surgical History (Last Reviewed 08/30/19 @ 14:06 by Lindy Valadez) Dental root implant present Z97.2 Heel spur M77.30 Hx of LASIK Z98.890 Hx of breast reduction, elective Z98.890 Surgical History: - - Recent microdiscectomy, bilateral breast reduction, bilateral eye surgery. Psychiatric History: Anxiety, Depression OPHTHALMIC DISPENSER History: No pertinent OPHTHALMIC DISPENSER history Lives: Spouse/ Significant Other Smoking Status: Former smoker - Patient notes smoking cigarette tobacco in college for short time period. Tobacco Use: Non-smoker Alcohol: Occasional Drugs: None - *Family History Maternal Family History: Family History (Last Reviewed 08/30/19 @ 14:06 by Lindy Valadez) Grandfather Diabetes Father Hyperlipidemia Lupus Celiac disease Mother ALS (amyotrophic lateral sclerosis) History Items: Cancer, - - Mother with history of ALS. Paternal Family History: Family History (Last Reviewed 08/30/19 @ 14:06 by Lindy Valadez) Grandfather Diabetes Father Hyperlipidemia Lupus Celiac disease Mother ALS (amyotrophic lateral sclerosis) History Items: Cancer, High Cholesterol, - - Father with a history of lupus and celiac disease. Review of Systems Constitutional: Reports: Chills, Malaise, Weakness, Fatigue. Denies: Anorexia, Fever, Weight Change HEENT: Reports: Head Aches, - - Light and sound sensitivity.. Denies: Sinus Congestion, Sinus Drainage Cardiovascular: Denies: Chest Pain, Palpitations Respiratory: Denies: Cough, Shortness of breath at rest, Sputum production Gastrointestinal: Denies: Abdominal Pain, Nausea, Vomiting Genitourinary: Denies: Dysuria Musculoskeletal: Reports: Back Pain. Denies: Joint Pain, Joint Tenderness Skin: Denies: Rash, Wounds Neurological: Reports: - - Headaches, light and sound sensitivity, upper extremity tremoring and possible spastic movements.. Denies: Focal weakness, Numbness, Tingling Psychiatric: Reports: Anxiety, Depression. Denies: Homicidal Ideations, Suicidal Ideations Hematologic/ Lymphatic: Denies: Easy Bruising, Easy Bleeding Patient Problems: Active and Suspected Problems (Last Reviewed 08/30/19 @ 14:06 by Lindy Valadez) Migraine (Acute) Subjective: Laying in the medical surgical bed, notes extreme sensitivity to light and sound, covering her face with a blanket, no evidence of spasticity, some tremoring but consistent with shivering. Objective: Physical Examination: General: awake, alert, oriented x 3 and cooperative, laying in the medical surgical bed, fatigued appearing, notes ongoing headache, covered face with blanket secondary to light sensitivity with migraine, no evidence of spastic upper extremity movements. Skin: normal color, turgor, no icterus, cyanosis except lumbar spine dressing in place with no discharge, recent microdiscectomy. HEENT: AT/NC, EOMI, PERRLA, mildly dry MM, no carotid bruits or JVD noted. Lungs: CTA bilaterally, moderate effort, mild decrease BL bases, no rales, ronchi or wheezing. Heart: Regular rate and rhythm; no gallop, rub audible. Abdomen: soft, NTTP, ND, normal BS, no HSM. Extremities: no cyanosis, clubbing, or edema. Neurological: patient awake, alert, oriented as noted; cognitive function intact; pupils equally reactive to light and accomodation; cranial nerves II-XII grossly normal, moving all 4 extremities, recent operative intervention therefore some difficulty with performing neurological examination but intact, sensation intact, difficulty with [id number] secondary to lumbar back discomfort but no obvious deficits, [id number] intact, negative Babinski, no obvious spasticity, shivering present. Psychiatric: affect appears fatigued and mildly anxious, calmed with discussions, no acute evidence of depressive feelings. - Physical Exam Vitals/I&O's: Vital Signs Temp Pulse Resp BP Pulse Ox 97.5 F L 93 18 145/81 H 97 01/02/20 01:09 01/02/20 01:32 01/02/20 01:09 01/02/20 01:32 01/02/20 01:09 Oxygen Flow Rate (L/min) 3 Oxygen Delivery Method Room Air Weight: 182 lb 5.156 oz Body Mass Index (BMI) 32.3 Intake and Output for Last 24 Hours 12/31/19 01/01/20 01/02/20 23:59 23:59 23:59 Intake Total 2110 / 2510 400 / 400 Output Total 1100 / 1100 Balance 2110 / 1410 -700 / -700 Current Medications Hydrocodone Bitart/Acetaminophen ([place] 5mg-325mg) 1 - 2 tablet PO Q6H PRN PRN PRN Reason: Pain Score 1-10/10 Last Admin: 01/02/20 01:06 Dose: 2 tablet Documented by: Gabapentin (Neurontin) 300 mg PO TIDCM [facility] Last Admin: 01/01/20 21:28 Dose: 300 mg Documented by: Sodium Chloride () 250 mls @ 15 mls/hr IV .[id number] PRN PRN Reason: Saline Flush Sodium Chloride () 250 mls @ 15 mls/hr IV .[id number] PRN PRN Reason: Additional IVPB Infusion Ibuprofen (Motrin) 800 mg PO Q8 [facility] Last Admin: 01/01/20 21:28 Dose: 800 mg Documented by: Ondansetron HCl (Zofran) 8 mg PO Q6H PRN PRN PRN Reason: NAUSEA Paroxetine HCl (Paxil Cr) 12.5 mg PO QHS [facility] Last Admin: 01/01/20 23:42 Dose: 12.5 mg Documented by: Sodium Chloride () 10 - 40 ml IV UD PRN PRN Reason: SALINE FLUSH Assessment/Plan All Active Problems (Last Reviewed 03/12/20 @ 14:06 by Lindy Valadez) Migraine (Acute) Segmental and somatic dysfunction of cervical region (Acute) Segmental and somatic dysfunction of thoracic region (Acute) Segmental and somatic dysfunction of pelvic region (Acute) Segmental and somatic dysfunction of lumbar region (Acute) Perirectal skin irritation (Acute) Post-menopausal bleeding (Acute) The patient is a 54 y/o F w/ PMHx: Migraines, Anxiety and Depression, Asthma, HLD, Allergic Rhinitis, Chronic back pain who recently presented to the [facility] on 01/01/20 for planned left L5-S1 microdiscectomy secondary to left L5-S1 par acentral disc protrusion with left S1 radiculopathy associated with no intraoperative event however following transition to PACU patient reportedly had onset of headache with nausea and emesis x2 bouts with spastic upper extremity movements therefore she was kept for continued observation. 1. Chronic back pain with L5-S1 disc herniation with radiculopathy: Status post recent left L5-S1 microdiscectomy, admitted following PACU onset symptoms possibly secondary to migraine coupled with poor reaction to anesthetics which patient admitted has happened previously, discussed case with patient's surgeon, will avoid any anticoagulant therapy, amenable to treatment as noted #2, CT head being requested as well, no neurological concerning findings on examination, dressing from operative intervention clean, dry and intact. 2. Suspected Acute Persistent Intractable Migraine, Possibly Complex: Per discussion with patient surgeon will obtain CT head, amenable to initiate IV VPA 500mg Q6 hours, IV Decadron 4mg Q6 hours, IV Toradol 30mg every 8 scheduled x5 with hold on oral ibuprofen and continuation of recently initiated neurontin 300mg TID with meals. If patient JULIO does not improve will proceed with MRI of brain. 3. Anxiety and depression: We will continue patient home Paxil as well as trazodone regimen. 4. Hyperlipidemia: Not on regimen, defer to outpatient. 5. Asthma: We will continue patient home inhaler and PRN albuterol regimen. 6. DVT prophylaxis: SCDs, defer chemoprophylaxis given recent operative intervention as noted. Office Visits / Consults: [id number] IP Consult L5
--- NOTE | 2020-01-02 01:56 | NURSING ---
Dr. Riddle is on her way to see this pt per the consult order but she would like Dr. Ramos contacted since she did the surgery. Juan DUNN notified of same.
--- NOTE | 2020-01-02 02:26 | CT_ITS ---
STUDY: CT BRAIN WITHOUT CONTRAST REASON FOR EXAM: Female, 54 years old. [Headache, nausea, vomiting, chills. Postop L5-S1 microdiscectomy. RADIATION DOSAGE (If Supplied By Facility): CTDIvol = ( 44.99 ) mGy, DLP = ( 863.60 ) mGycm TECHNIQUE: Transaxial CT imaging of the brain was performed without administration of intravenous contrast material. Individualized dose optimization techniques were used for this CT. COMPARISON: No relevant priors. FINDINGS: Normal soft tissue structures. Normal calvarium. Normal size ventricles and extra-axial spaces for the patient''s age. Normal white matter tracts of the cerebral hemispheres. Normal basal ganglia and thalami. Normal brainstem. Normal cerebellum. There is no intracranial hemorrhage. There are no findings of an acute ischemic infarction. Normal visualized paranasal sinuses. Mastoid air cells well aerated. CT/Brain/Head without Contrast IMPRESSION: Normal unenhanced CT scan of the brain. Electronically Signed: David Wright MD at 4:32 EDT , Service support ,
[2020-01-02] MEDS: Ketorolac 30 MG/ML Syringe IV (02:42)
[2020-01-02] MEDS: dexAMETHasone 4 MG/ML Vial IV ×5 (02:43→23:24)
[2020-01-02] MEDS: 0.9% Saline Lock 10 ML Syringe IV ×5 (03:22→23:24)
[2020-01-02 06:06] LABS: Absolute Lymphocyte Count 0.72 X10^3/uL (0.83-4.51); Absolute Neutrophil Count 12.9 X10^3/uL (2.0-7.7); Basophil# 0.01 X10^3/uL; Basophil% 0.1 % (0-1); Hematocrit 39.5 % (37-47); Hemoglobin 13.3 g/dL (12.0-15.0); Lymphocyte # 0.72 X10^3/ul (4.0); Lymphocyte % 5.1 % (19-41); Mean Corp Hgb Conc 33.7 g/dL (32-36); Mean Corpuscular Hgb 31.2 pg (27.0-32.0); Mean Corpuscular Volume 92.7 fL (81-99); Mean Platelet Vol. 10.2 fl (6.2-12.0); Monocyte# 0.34 X10^3/uL; Monocyte% 2.4 % (0-10); NRBC Flagged by Analyzer 0 % (0-5); Neutrophil # 12.86 X10^3/uL (2.7-7.7); Neutrophil % 91.9 % (47-70); Platelet Count 201 K/mm3 (150-450); Red Blood Count 4.26 M/mm3 (4.2-5.4)
[2020-01-02 06:34] LABS: ALB/GLOB Ratio 1.2 RATIO (0.9-2.4); AST(SGOT) 16 U/L (15-37); Alanine Aminotransfer ALT/SGPT 37 U/L (13-56); Albumin, Serum 3.4 g/dL (3.2-5.0); Alkaline Phosphatase 82 U/L (45-117); Anion Gap 7 (5-15); BUN 10 mg/dL (7-18); BUN/Creat Ratio 9.7 RATIO (10-20); Calcium,Total 8.3 mg/dL (8.5-10.1); Chloride 107 mmol/L (98-107); Creatinine, Serum 1.03 mg/dL (0.55-1.02); EST Glomerular Filtration Rate 59 mL/min (>60); Est Glom Filt Rate - Afr Amer 71 mL/min (>60); Estimated Creatinine Clearance 48.81 ml/min; Globulin 2.9 g/dL (2.2-4.2); Glucose 157 mg/dL (74-106); Potassium 4.1 mmol/L (3.5-5.1); Protein, Total 6.3 g/dL (6.4-8.2); Sodium Level 139 mmol/L (136-145)
[2020-01-02] MEDS: Albuterol 2.5 MG/3 ML VIAL.NEB. INHALATION ×3 (06:59→19:50)
[2020-01-02] MEDS: Famotidine 20 MG Tablet PO ×2 (07:11→22:53)
--- NOTE | 2020-01-02 08:03 | PN.SURG_ITS ---
Patient Problems: Active and Suspected Problems (Last Reviewed 08/30/19 @ 14:06 by Lindy Valadez) Migraine (Acute) Subjective: Patient improved migraine overnight. Has not been out of bed but has been voiding spontaneously. Denies preop leg pain, but has not mobilized as well. She feels much better this morning. - Physical Exam Vitals/I&O's: Vital Signs Temp Pulse Resp BP Pulse Ox 98.6 F 102 H 16 139/72 H 97 01/02/20 04:50 01/02/20 06:59 01/02/20 06:59 01/02/20 04:50 01/02/20 06:59 Oxygen Flow Rate (L/min) 3 Oxygen Delivery Method Room Air Weight: 182 lb 5.156 oz Body Mass Index (BMI) 32.3 Intake and Output for Last 24 Hours 12/31/19 01/01/20 01/02/20 23:59 23:59 23:59 Intake Total 2110 / 2510 1755 / 1755 Output Total 1600 / 1600 Balance 2110 / 1410 155 / 155 Laboratory Results 01/02/20 05:54: WBC 14.0 H, RBC 4.26, Hgb 13.3, Hct 39.5, MCV 92.7, MCH 31.2, MCHC 33.7, RDW Std Deviation 43.0, RDW Coeff of April 13.0, Plt Count 201, MPV 10.2, Immature Gran % (Auto) 0.500, Neut % (Auto) 91.9 H, Lymph % (Auto) 5.1 L, [place] % (Auto) 2.4, Eos % (Auto) 0.0, Baso % (Auto) 0.1, Absolute Neuts (auto) 12.9 H, Absolute Lymphs (auto) 0.72 L, Nucleated RBC % 0 01/02/20 05:54: Sodium 139, Potassium 4.1, Chloride 107, Carbon Dioxide 25.0, Anion Gap 7, BUN 10, Creatinine 1.03 H, Estim Creat Clear Calc 48.81, Est GFR (MDRD) Af Amer 71, Est GFR (MDRD) Non-Af 59 L, BUN/Creatinine Ratio 9.7 L, Glucose 157 H, Calcium 8.3 L, Total Bilirubin 0.50, AST 16, ALT 37, Alkaline Phosphatase 82, Total Protein 6.3 L, Albumin 3.4, Globulin 2.9, Albumin/Globulin Ratio 1.2 Current Medications Hydrocodone Bitart/Acetaminophen ([place] 5mg-325mg) 1 - 2 tablet PO Q6H PRN PRN PRN Reason: Pain Score 1-10/10 Last Admin: 01/02/20 01:06 Dose: 2 tablet Documented by: Albuterol Sulfate (Ventolin Aerosols) 2.5 mg INHALATION Q2H PRN PRN PRN Reason: Dyspnea, wheezing Albuterol Sulfate (Ventolin Aerosols) 2.5 mg INHALATION Q6HWA.RT [facility] Last Admin: 01/02/20 06:59 Dose: 2.5 mg Documented by: Dexamethasone Sodium Phosphate (Decadron) 4 mg IV Q6 [facility] Last Admin: 01/02/20 06:29 Dose: 4 mg Documented by: Famotidine (Pepcid) 20 mg PO BID [facility] Last Admin: 01/02/20 07:11 Dose: 20 mg Documented by: Gabapentin (Neurontin) 300 mg PO TIDCM [facility] Last Admin: 01/01/20 21:28 Dose: 300 mg Documented by: Sodium Chloride () 250 mls @ 15 mls/hr IV .[id number] PRN PRN Reason: Saline Flush Sodium Chloride () 250 mls @ 15 mls/hr IV .[id number] PRN PRN Reason: Additional IVPB Infusion Valproic Acid 500 mg/ Dextrose 55 mls @ 50 mls/hr IV Q6 [facility] Last Admin: 01/02/20 06:30 Dose: 50 mls/hr Documented by: Ketorolac Tromethamine (Toradol (Bkc)) 30 mg IV Q8 [facility] Stop: 01/03/20 14:01 Last Admin: 01/02/20 02:42 Dose: 30 mg Documented by: Ondansetron HCl (Zofran) 8 mg PO Q6H PRN PRN PRN Reason: NAUSEA Paroxetine HCl (Paxil Cr) 12.5 mg PO QHS [facility] Last Admin: 01/01/20 23:42 Dose: 12.5 mg Documented by: Promethazine HCl (Phenergan) 6.25 mg IV Q4H PRN PRN PRN Reason: NAUSEA/VOMITING Sodium Chloride () 10 - 40 ml IV UD PRN PRN Reason: SALINE FLUSH Last Admin: 01/02/20 03:22 Dose: 20 ml Documented by: Trazodone HCl (Desyrel) 50 mg PO QHS [facility] Medical Necessity - Tobacco Use Smoking Status: Former smoker - Patient notes smoking cigarette tobacco in college for short time period. Tobacco Use: Non-smoker Assessment/Plan All Active Problems (Last Reviewed 08/30/19 @ 14:06 by Lindy Valadez) Migraine (Acute) Segmental and somatic dysfunction of cervical region (Acute) Segmental and somatic dysfunction of thoracic region (Acute) Segmental and somatic dysfunction of pelvic region (Acute) Segmental and somatic dysfunction of lumbar region (Acute) Perirectal skin irritation (Acute) Post-menopausal bleeding (Acute) 1. status post left L5-S1 microdiscectomy 01/01/2020 2. postoperative migraine I spoke with the patient and nursing staff this morning. Patient is much improved. Will plan to mobilize today with plans to discharge this afternoon. Patient will be seen and examined by my physician library clerical assistant, Bib Darling. Appreciate Dr. Jackeline Riddle, hospitalist, care overnight and migraine care treatment. CT head negative for acute pathology. Plan of care discussed with patient. All questions answered. The patient was appreciative of the call.
[2020-01-02] MEDS: Gabapentin 300 MG Capsule PO ×3 (08:44→17:57)
--- NOTE | 2020-01-02 11:05 | PCM.PN.ORT ---
Patient Problems: Active and Suspected Problems (Last Reviewed 08/30/19 @ 14:06 by Lindy Valadez) Migraine (Acute) Subjective: Patient states that currently she is doing well since she has been lying supine. She prefers to have the lights down and states that as long as she is supine that she does not have a headache. She states that she did get up again to urinate and by the time that she got back to the bed her headache had returned and was a 3/10. She got into bed and the headache resolved. She had a little nausea after eating a little bit but did not vomit. She has a little sore throat and states that she has also had some reflux Objective: Patient is lying supine in bed resting upon entering the room. She is not in acute distress and shows no signs of discomfort or pain. She is able to smile and converses appropriately. She had no confusion or difficulties with communication. - Physical Exam Vitals/I&O's: Vital Signs Temp Pulse Resp BP Pulse Ox 98.7 F 94 16 113/62 95 01/02/20 09:57 01/02/20 09:57 01/02/20 09:57 01/02/20 09:57 01/02/20 09:57 Oxygen Flow Rate (L/min) 3 Oxygen Delivery Method Room Air Weight: 182 lb 5.156 oz Body Mass Index (BMI) 32.3 Intake and Output for Last 24 Hours 12/31/19 01/01/20 01/02/20 23:59 23:59 23:59 Intake Total 2110 / 2510 1810 / 1810 Output Total 1600 / 1600 Balance 2110 / 1410 210 / 210 General: Alert, Oriented x3, Cooperative, No apparent distress Extremities: No clubbing, No cyanosis, No edema, No Calf Tenderness Skin: No rashes, No breakdown, Incision - skin around incision shows no erythema, bruising, or fluid accumulation to indicate underlying infection or seroma. She has no tenderness on palpation of the incision site. Musculoskeletal: No Tenderness to Palpation of Joints or Extremities, - - Lower leg compartments are soft and non-tender - No calf tenderness Neurological: Deep Tendon Reflexes 2+/4 and Symmetrical - Patellar and Ankle/achiles, Neuro grossly intact, Muscle tone normal, Sensory exam intact to light touch and pain, - - Patient has negative straight leg raises. Intact motor function of the knee/ankle/toes (did not do max strength test due to being post-op) Psych/Mental Status: Normal Affect Laboratory Results 01/02/20 05:54: WBC 14.0 H, RBC 4.26, Hgb 13.3, Hct 39.5, MCV 92.7, MCH 31.2, MCHC 33.7, RDW Std Deviation 43.0, RDW Coeff of April 13.0, Plt Count 201, MPV 10.2, Immature Gran % (Auto) 0.500, Neut % (Auto) 91.9 H, Lymph % (Auto) 5.1 L, [place] % (Auto) 2.4, Eos % (Auto) 0.0, Baso % (Auto) 0.1, Absolute Neuts (auto) 12.9 H, Absolute Lymphs (auto) 0.72 L, Nucleated RBC % 0 01/02/20 05:54: Sodium 139, Potassium 4.1, Chloride 107, Carbon Dioxide 25.0, Anion Gap 7, BUN 10, Creatinine 1.03 H, Estim Creat Clear Calc 48.81, Est GFR (MDRD) Af Amer 71, Est GFR (MDRD) Non-Af 59 L, BUN/Creatinine Ratio 9.7 L, Glucose 157 H, Calcium 8.3 L, Total Bilirubin 0.50, AST 16, ALT 37, Alkaline Phosphatase 82, Total Protein 6.3 L, Albumin 3.4, Globulin 2.9, Albumin/Globulin Ratio 1.2 Current Medications Hydrocodone Bitart/Acetaminophen ([place] 5mg-325mg) 1 - 2 tablet PO Q6H PRN PRN PRN Reason: Pain Score 1-10/10 Last Admin: 01/02/20 08:44 Dose: 1 tablet Documented by: Albuterol Sulfate (Ventolin Aerosols) 2.5 mg INHALATION Q2H PRN PRN PRN Reason: Dyspnea, wheezing Albuterol Sulfate (Ventolin Aerosols) 2.5 mg INHALATION Q6HWA.RT [facility] Last Admin: 01/02/20 06:59 Dose: 2.5 mg Documented by: Dexamethasone Sodium Phosphate (Decadron) 4 mg IV Q6 [facility] Last Admin: 01/02/20 06:29 Dose: 4 mg Documented by: Famotidine (Pepcid) 20 mg PO BID [facility] Last Admin: 01/02/20 07:11 Dose: 20 mg Documented by: Gabapentin (Neurontin) 300 mg PO TIDCM [facility] Last Admin: 01/02/20 08:44 Dose: 300 mg Documented by: Sodium Chloride () 250 mls @ 15 mls/hr IV .[id number] PRN PRN Reason: Saline Flush Sodium Chloride () 250 mls @ 15 mls/hr IV .[id number] PRN PRN Reason: Additional IVPB Infusion Valproic Acid 500 mg/ Dextrose 55 mls @ 50 mls/hr IV Q6 [facility] Last Infusion: 01/02/20 07:45 Dose: Infused Documented by: Ketorolac Tromethamine (Toradol (Bkc)) 30 mg IV Q8 [facility] Stop: 01/03/20 14:01 Last Admin: 01/02/20 02:42 Dose: 30 mg Documented by: Ondansetron HCl (Zofran) 8 mg PO Q6H PRN PRN PRN Reason: NAUSEA Paroxetine HCl (Paxil Cr) 12.5 mg PO QHS [facility] Last Admin: 01/01/20 23:42 Dose: 12.5 mg Documented by: Promethazine HCl (Phenergan) 6.25 mg IV Q4H PRN PRN PRN Reason: NAUSEA/VOMITING Sodium Chloride () 10 - 40 ml IV UD PRN PRN Reason: SALINE FLUSH Last Admin: 01/02/20 03:22 Dose: 20 ml Documented by: Trazodone HCl (Desyrel) 50 mg PO QHS [facility] Medical Necessity - Tobacco Use Smoking Status: Former smoker - Patient notes smoking cigarette tobacco in college for short time period. Tobacco Use: Non-smoker Assessment/Plan All Active Problems (Last Reviewed 08/30/19 @ 14:06 by Lindy Valadez) Migraine (Acute) Segmental and somatic dysfunction of cervical region (Acute) Segmental and somatic dysfunction of thoracic region (Acute) Segmental and somatic dysfunction of pelvic region (Acute) Segmental and somatic dysfunction of lumbar region (Acute) Perirectal skin irritation (Acute) Post-menopausal bleeding (Acute) PAtient is day 1 for microdescectomy with complaints of headache that is positional (worsening when patient is upright at all) as well as worsening with any valsalva type activities (cough, hiccup). Her incision shows no signs of infection or seroma and the extremities are neurovascularly intact with normal reflexes, pulses, and motor function. Her compartments are soft and she has no signs of DVT. Patients headache last evening was a 10/10 and her concern is that she has another episode like this at home and will not be able to tolerate this let alone not being able to be upright at all. There are some migraine symptoms at the same time we discussed concern for possible CSF leak post-operatively. We discussed that with her having these symptoms that it is an option that she be transferred down to [facility] (where the performing surgeon is located) so that her surgeon can be available in case other issues would arise. We discussed this with patient and her and they both agree that they would like to transfer to [facility] for advanced care there. I do feel that this is appropriate option to be at spine facility with performing physician able to evaluate and follow patient. All of their questions were answered at this time.
[2020-01-02] MEDS: Glycerin/Hypromellose/PEG400 15 ml Bottle 15 DRP EACH EYE (11:20)
--- NOTE | 2020-01-02 12:14 | PCM.PN.HOSP ---
<Chad Marin - Last Filed: 01/02/20 12:14> Patient Problems: Active and Suspected Problems (Last Reviewed 08/30/19 @ 14:06 by Lindy Valadez) Migraine (Acute) Reason for Visit: JULIO Subjective: upper extremity parasthesias resolved. mild lower back pain. ongoing JULIO but improved. mild nausea no vomiting. overall much improved. attempting to slowly sit up with increased headache. better lying flat. Vitals/I&O's: Vital Signs Temp Pulse Resp BP Pulse Ox 98.3 F 94 18 113/64 94 01/02/20 10:00 01/02/20 10:00 01/02/20 10:00 01/02/20 10:00 01/02/20 10:00 Oxygen Flow Rate (L/min) 3 Oxygen Delivery Method Room Air Weight: 182 lb 5.156 oz Body Mass Index (BMI) 32.3 Intake and Output for Last 24 Hours 12/31/19 01/01/20 01/02/20 23:59 23:59 23:59 Intake Total 2109 / 2509 1809 / 1809 Output Total 2049 Balance 2110 / 1410 -240 / -240 General: Alert, Oriented x3, Cooperative HEENT: Atraumatic, PERRLA, EOMI, Normocephalic Neck: Supple, No JVD, Negative Carotid Bruits Lungs: Clear to auscultation, Normal air movement Cardiovascular: Regular rate, No murmurs Abdomen: Bowel Sounds Present, Soft, Non Tender Extremities: No edema, Capillary Refill Less than 3 Seconds Skin: No rashes, No breakdown Musculoskeletal: No Tenderness to Palpation of Joints or Extremities Neurological: Cranial nerves II-XII grossly intact Psych/Mental Status: Normal Affect, Appropriate, Alert and oriented to time, place, person, mood and affect Laboratory Results 01/02/20 05:54: WBC 14.0 H, RBC 4.26, Hgb 13.3, Hct 39.5, MCV 92.7, MCH 31.2, MCHC 33.7, RDW Std Deviation 43.0, RDW Coeff of April 13.0, Plt Count 201, MPV 10.2, Immature Gran % (Auto) 0.500, Neut % (Auto) 91.9 H, Lymph % (Auto) 5.1 L, [place] % (Auto) 2.4, Eos % (Auto) 0.0, Baso % (Auto) 0.1, Absolute Neuts (auto) 12.9 H, Absolute Lymphs (auto) 0.72 L, Nucleated RBC % 0 01/02/20 05:54: Sodium 139, Potassium 4.1, Chloride 107, Carbon Dioxide 25.0, Anion Gap 7, BUN 10, Creatinine 1.03 H, Estim Creat Clear Calc 48.81, Est GFR (MDRD) Af Amer 71, Est GFR (MDRD) Non-Af 59 L, BUN/Creatinine Ratio 9.7 L, Glucose 157 H, Calcium 8.3 L, Total Bilirubin 0.50, AST 16, ALT 37, Alkaline Phosphatase 82, Total Protein 6.3 L, Albumin 3.4, Globulin 2.9, Albumin/Globulin Ratio 1.2 Current Medications Hydrocodone Bitart/Acetaminophen ([place] 5mg-325mg) 1 - 2 tablet PO Q6H PRN PRN PRN Reason: Pain Score 1-10/10 Last Admin: 01/02/20 08:44 Dose: 1 tablet Documented by: Albuterol Sulfate (Ventolin Aerosols) 2.5 mg INHALATION Q2H PRN PRN PRN Reason: Dyspnea, wheezing Albuterol Sulfate (Ventolin Aerosols) 2.5 mg INHALATION Q6HWA.RT [facility] Last Admin: 01/02/20 06:59 Dose: 2.5 mg Documented by: Dexamethasone Sodium Phosphate (Decadron) 4 mg IV Q6 [facility] Last Admin: 01/02/20 11:20 Dose: 4 mg Documented by: Famotidine (Pepcid) 20 mg PO BID [facility] Last Admin: 01/02/20 07:11 Dose: 20 mg Documented by: Gabapentin (Neurontin) 300 mg PO TIDCM [facility] Last Admin: 01/02/20 11:20 Dose: 300 mg Documented by: Sodium Chloride () 250 mls @ 15 mls/hr IV .[id number] PRN PRN Reason: Saline Flush Sodium Chloride () 250 mls @ 15 mls/hr IV .[id number] PRN PRN Reason: Additional IVPB Infusion Valproic Acid 500 mg/ Dextrose 55 mls @ 50 mls/hr IV Q6 [facility] Last Admin: 01/02/20 11:23 Dose: 50 mls/hr Documented by: Ketorolac Tromethamine (Toradol (Bkc)) 30 mg IV Q8 [facility] Stop: 01/03/20 14:01 Last Admin: 01/02/20 02:42 Dose: 30 mg Documented by: Ondansetron HCl (Zofran) 8 mg PO Q6H PRN PRN PRN Reason: NAUSEA Paroxetine HCl (Paxil Cr) 12.5 mg PO QHS [facility] Last Admin: 01/01/20 23:42 Dose: 12.5 mg Documented by: Promethazine HCl (Phenergan) 6.25 mg IV Q4H PRN PRN PRN Reason: NAUSEA/VOMITING Sodium Chloride () 10 - 40 ml IV UD PRN PRN Reason: SALINE FLUSH Last Admin: 01/02/20 11:22 Dose: 10 ml Documented by: Trazodone HCl (Desyrel) 50 mg PO QHS [facility] STROKE Vital Signs/Narrative: Vital Signs Temp Pulse Resp BP BP Pulse Ox 01/02/20 10:00 98.3 F 94 18 113/64 94 01/02/20 09:57 98.7 F 94 16 113/62 95 Medical Necessity - Tobacco Use Smoking Status: Former smoker - Patient notes smoking cigarette tobacco in college for short time period. Tobacco Use: Non-smoker Assessment/Plan All Active Problems (Last Reviewed 08/30/19 @ 14:06 by Lindy Valadez) Migraine (Acute) Segmental and somatic dysfunction of cervical region (Acute) Segmental and somatic dysfunction of thoracic region (Acute) Segmental and somatic dysfunction of pelvic region (Acute) Segmental and somatic dysfunction of lumbar region (Acute) Perirectal skin irritation (Acute) Post-menopausal bleeding (Acute) 1. Migraine - improved. continue current plan. Toradol, depakote, neurontin, decadron, phenergan 2. Leukocytosis - no symptoms concerning for acute infection. recheck CBC in AM. likely reactive to surgery. 3. s/p discectomy - care per Dr. Ramos. 4. Asthma - no exacerbation - prn aerosols. Thank you for the opportunity to participate in the care of this patient This patient was seen by Chad Marin PA-C under the supervision of Dr. Mcdaniel. <Cornelio Mcdaniel - Last Filed: 01/02/20 12:27> Reason for Visit: For headache and lumbar microdissection surgery Subjective: Patient had elective left L5-S1 microdiscectomy for L5-S1 paracentral disc protrusion with left S1 radiculopathy. Subsequently patient had nausea, vomiting and headache and subsequently was admitted. Headache is much improved about 70%. On IV Decadron and IV phenytoin. On Toradol for pain control. On physical exam General: Alert, Oriented x3, Cooperative HEENT: Atraumatic, PERRLA, EOMI, Normocephalic, mild photophobia Oral: No Gingival or Mucosal Lesions/ Ulcerations Neck: Supple, No JVD, Negative Carotid Bruits Lungs: Air entry equal in bilateral lung bases. No crepitation/rhonchi Cardiovascular: Regular rate, Regular Rhythm, Normal S1, Normal S2, No murmurs Abdomen: Bowel Sounds Present, Soft, Non Tender, Non-Distended : No renal angle tenderness. No suprapubic tenderness. Extremities: No edema, Capillary Refill Less than 3 Seconds Back: Surgical dressing is dry. No palpable fluid collection around surgical wound. No tenderness. Skin: No rashes, No breakdown Musculoskeletal: No Tenderness to Palpation of Joints or Extremities Neurological: Cranial nerves II-XII grossly intact, Deep Tendon Reflexes 2+/4 and Symmetrical, Neuro grossly intact Psych/Mental Status: Normal Affect, Appropriate Vitals/I&O's: Vital Signs Temp Pulse Resp BP Pulse Ox 98.3 F 94 18 113/64 94 01/02/20 10:00 01/02/20 10:00 01/02/20 10:00 01/02/20 10:01/02/20 10:00 Oxygen Flow Rate (L/min) 3 Oxygen Delivery Method Room Air Weight: 182 lb 5.156 oz Body Mass Index (BMI) 32.3 Intake and Output for Last 24 Hours 12/31/19 01/01/20 01/02/20 23:59 23:59 23:59 Intake Total 2109 / 2509 1809 / 1809 Output Total 2049 Balance 2110 / 1410 -240 / -240 Laboratory Results 01/02/20 05:54: WBC 14.0 H, RBC 4.26, Hgb 13.3, Hct 39.5, MCV 92.7, MCH 31.2, MCHC 33.7, RDW Std Deviation 43.0, RDW Coeff of April 13.0, Plt Count 201, MPV 10.2, Immature Gran % (Auto) 0.500, Neut % (Auto) 91.9 H, Lymph % (Auto) 5.1 L, [place] % (Auto) 2.4, Eos % (Auto) 0.0, Baso % (Auto) 0.1, Absolute Neuts (auto) 12.9 H, Absolute Lymphs (auto) 0.72 L, Nucleated RBC % 0 01/02/20 05:54: Sodium 139, Potassium 4.1, Chloride 107, Carbon Dioxide 25.0, Anion Gap 7, BUN 10, Creatinine 1.03 H, Estim Creat Clear Calc 48.81, Est GFR (MDRD) Af Amer 71, Est GFR (MDRD) Non-Af 59 L, BUN/Creatinine Ratio 9.7 L, Glucose 157 H, Calcium 8.3 L, Total Bilirubin 0.50, AST 16, ALT 37, Alkaline Phosphatase 82, Total Protein 6.3 L, Albumin 3.4, Globulin 2.9, Albumin/Globulin Ratio 1.2 Current Medications Hydrocodone Bitart/Acetaminophen ([place] 5mg-325mg) 1 - 2 tablet PO Q6H PRN PRN PRN Reason: Pain Score 1-10/10 Last Admin: 01/02/20 08:44 Dose: 1 tablet Documented by: Albuterol Sulfate (Ventolin Aerosols) 2.5 mg INHALATION Q2H PRN PRN PRN Reason: Dyspnea, wheezing Albuterol Sulfate (Ventolin Aerosols) 2.5 mg INHALATION Q6HWA.RT [facility] Last Admin: 01/02/20 06:59 Dose: 2.5 mg Documented by: Dexamethasone Sodium Phosphate (Decadron) 4 mg IV Q6 [facility] Last Admin: 01/02/20 11:20 Dose: 4 mg Documented by: Famotidine (Pepcid) 20 mg PO BID [facility] Last Admin: 01/02/20 07:11 Dose: 20 mg Documented by: Gabapentin (Neurontin) 300 mg PO TIDCM [facility] Last Admin: 01/02/20 11:20 Dose: 300 mg Documented by: Sodium Chloride () 250 mls @ 15 mls/hr IV .[id number] PRN PRN Reason: Saline Flush Sodium Chloride () 250 mls @ 15 mls/hr IV .[id number] PRN PRN Reason: Additional IVPB Infusion Valproic Acid 500 mg/ Dextrose 55 mls @ 50 mls/hr IV Q6 [facility] Last Admin: 01/02/20 11:23 Dose: 50 mls/hr Documented by: Ketorolac Tromethamine (Toradol (Bkc)) 30 mg IV Q8 [facility] Stop: 01/03/20 14:01 Last Admin: 01/02/20 02:42 Dose: 30 mg Documented by: Ondansetron HCl (Zofran) 8 mg PO Q6H PRN PRN PRN Reason: NAUSEA Paroxetine HCl (Paxil Cr) 12.5 mg PO QHS [facility] Last Admin: 01/01/20 23:42 Dose: 12.5 mg Documented by: Promethazine HCl (Phenergan) 6.25 mg IV Q4H PRN PRN PRN Reason: NAUSEA/VOMITING Sodium Chloride () 10 - 40 ml IV UD PRN PRN Reason: SALINE FLUSH Last Admin: 01/02/20 11:22 Dose: 10 ml Documented by: Trazodone HCl (Desyrel) 50 mg PO QHS [facility] Vital Signs/Narrative: Vital Signs Temp Pulse Resp BP BP Pulse Ox 01/02/20 10:00 98.3 F 94 18 113/64 94 01/02/20 09:57 98.7 F 94 16 113/62 95 Assessment/Plan This patient was seen in conjunction with Chad MONTERO. I have independently interviewed and examined the patient and reviewed pertinent history, examination findings, laboratory and plan of management. I have reviewed the note and agree with the documented findings with the few additional points. In brief, patient is 54-year-old female admitted with migraine headache episode along with nausea and vomiting after L5-S1 left-sided micro dissection for paracentral disc protrusion with left S1 radiculopathy. Migraine headache has much improved. Continue regimen of IV valproic acid, Depakote Toradol along with Neurontin. Mild leukocytosis: Surgical site no tenderness or no fluctuation/collection suggestive of infection. Incentive spirometry. Mild anxiety and depression and asthma: Patient is on Paxil and is continued. Albuterol PRN. I have discussed my assessment with Chad MONTERO and orders have been reviewed. Inpatient E&M: 28934 Subs Hosp L2
--- NOTE | 2020-01-02 12:28 | NURSING ---
pt ambulated to bathroom with headache spouse reports about the same pt back to bed, started to eat her lunch, states she hiccuped then excruciating headache started. currently pt not wanting to speak, or do much movement, tearful. bed placed in supine again.
--- NOTE | 2020-01-02 15:16 | CASEMGMT ---
Addendum entered by Alen Ag 01/02/20 16:41: Intro role of CM to patient along with Agustin, broker in charge nurse. Explained to patient that [facility] is out of network and [facility], though Out of Network is preferred hospital. Pt was aware of this. Explained that prior authorization is being sent to [facility] to request InNetwork benefits for transfer to [facility] as this is where the surgeon is affiliated. Also explained that benefits cannot be guaranteed until review of the case by [facility]. Patient is visibly concerned, upset regarding need for transfer. States she has been through this before and they (insurance) didn't pay. RN AISHA let her know again that request will be sent today for their review. She stated she needed to speak with her family regarding this. Patient will let charge nurse know her decision regarding transfer. -SHAUN LEONARD spoke with Sammie from [facility] . Informed urgent request for transfer to [facility] is needed and recommended by patient's surgeon. [facility] is recommended by surgeon as this is where she has privileges/affiliation as physician to follow up. Clinicals requested. Preauth form and clinicals faxed to Sammie @ . Original Note: SHAUN LEONARD Note: Notified patient may need transferred and surgeon prefers [facility]. [facility] insurance called, spoke with Annia Michelle [facility] is a preferred out of network provider, and if transferred, [facility] would do precertification. IF [facility], prior authorization referral needs to be made. Call to Shruti who will contact physician. Edita SINGLETONN SHAUN ACM
--- NOTE | 2020-01-02 16:08 | NURSING ---
spoke with pt and Alen LEONARD about insurance coverage going to [facility]. pt is upset about insurance may not be covering transfer to [facility]. pt expressed concern about this will ruin us financially. let the pt voice her concerns pt states she needs to talk with her on what to do. Informed her to call with what she wants us to do.
--- NOTE | 2020-01-02 16:18 | PCM.PN.ORT ---
Patient Problems: Active and Suspected Problems (Last Reviewed 08/30/19 @ 14:06 by Lindy Valadez) Migraine (Acute) Subjective: Patient states that after the head of the bed was elevated that her headache returned. She tried to eat and had a hiccup which intensified the pain immediately to a 6 or 7 out of 10. She states that the headache was resolved after they placed her in supine position again. She has been headache free again since lying back down. - Physical Exam Vitals/I&O's: Vital Signs Temp Pulse Resp BP Pulse Ox 98.3 F 95 18 116/60 99 01/02/20 15:00 01/02/20 15:00 01/02/20 15:00 01/02/20 15:00 01/02/20 15:00 Oxygen Flow Rate (L/min) 3 Oxygen Delivery Method Room Air Weight: 182 lb 5.156 oz Body Mass Index (BMI) 32.3 Intake and Output for Last 24 Hours 12/31/19 01/01/20 01/02/20 23:59 23:59 23:59 Intake Total 2109 / 2509 1864 / 186 Output Total 2049 Balance 2110 / 1410 -185 / -185 General: Alert, Oriented x3, Cooperative Laboratory Results 01/02/20 05:54: WBC 14.0 H, RBC 4.26, Hgb 13.3, Hct 39.5, MCV 92.7, MCH 31.2, MCHC 33.7, RDW Std Deviation 43.0, RDW Coeff of April 13.0, Plt Count 201, MPV 10.2, Immature Gran % (Auto) 0.500, Neut % (Auto) 91.9 H, Lymph % (Auto) 5.1 L, [place] % (Auto) 2.4, Eos % (Auto) 0.0, Baso % (Auto) 0.1, Absolute Neuts (auto) 12.9 H, Absolute Lymphs (auto) 0.72 L, Nucleated RBC % 0 01/02/20 05:54: Sodium 139, Potassium 4.1, Chloride 107, Carbon Dioxide 25.0, Anion Gap 7, BUN 10, Creatinine 1.03 H, Estim Creat Clear Calc 48.81, Est GFR (MDRD) Af Amer 71, Est GFR (MDRD) Non-Af 59 L, BUN/Creatinine Ratio 9.7 L, Glucose 157 H, Calcium 8.3 L, Total Bilirubin 0.50, AST 16, ALT 37, Alkaline Phosphatase 82, Total Protein 6.3 L, Albumin 3.4, Globulin 2.9, Albumin/Globulin Ratio 1.2 Current Medications Hydrocodone Bitart/Acetaminophen ([place] 5mg-325mg) 1 - 2 tablet PO Q6H PRN PRN PRN Reason: Pain Score 1-10/10 Last Admin: 01/02/20 08:44 Dose: 1 tablet Documented by: Albuterol Sulfate (Ventolin Aerosols) 2.5 mg INHALATION Q2H PRN PRN PRN Reason: Dyspnea, wheezing Albuterol Sulfate (Ventolin Aerosols) 2.5 mg INHALATION Q6HWA.RT [facility] Last Admin: 01/02/20 13:26 Dose: 2.5 mg Documented by: Dexamethasone Sodium Phosphate (Decadron) 4 mg IV Q6 [facility] Last Admin: 01/02/20 11:20 Dose: 4 mg Documented by: Famotidine (Pepcid) 20 mg PO BID [facility] Last Admin: 01/02/20 07:11 Dose: 20 mg Documented by: Gabapentin (Neurontin) 300 mg PO TIDCM [facility] Last Admin: 01/02/20 11:20 Dose: 300 mg Documented by: Sodium Chloride () 250 mls @ 15 mls/hr IV .[id number] PRN PRN Reason: Saline Flush Last Admin: 01/02/20 15:34 Dose: 15 mls/hr Documented by: Sodium Chloride () 250 mls @ 15 mls/hr IV .[id number] PRN PRN Reason: Additional IVPB Infusion Valproic Acid 500 mg/ Dextrose 55 mls @ 50 mls/hr IV Q6 [facility] Last Infusion: 01/02/20 12:30 Dose: Infused Documented by: Ondansetron HCl (Zofran) 8 mg PO Q6H PRN PRN PRN Reason: NAUSEA Paroxetine HCl (Paxil Cr) 12.5 mg PO QHS [facility] Last Admin: 01/01/20 23:42 Dose: 12.5 mg Documented by: Promethazine HCl (Phenergan) 6.25 mg IV Q4H PRN PRN PRN Reason: NAUSEA/VOMITING Sodium Chloride () 10 - 40 ml IV UD PRN PRN Reason: SALINE FLUSH Last Admin: 01/02/20 15:34 Dose: 10 ml Documented by: Trazodone HCl (Desyrel) 50 mg PO QHS [facility] Medical Necessity - Tobacco Use Smoking Status: Former smoker - Patient notes smoking cigarette tobacco in college for short time period. Tobacco Use: Non-smoker Assessment/Plan All Active Problems (Last Reviewed 08/30/19 @ 14:06 by Lindy Valadez) Migraine (Acute) Segmental and somatic dysfunction of cervical region (Acute) Segmental and somatic dysfunction of thoracic region (Acute) Segmental and somatic dysfunction of pelvic region (Acute) Segmental and somatic dysfunction of lumbar region (Acute) Perirectal skin irritation (Acute) Post-menopausal bleeding (Acute) Patient was again evaluated around 3:30 after attempting to try and elevate the head of the bed every 45 minutes to an hour. Unfortunately the headache returned (310) when head was elevated only 15-20 degrees and then was intensified by a hiccup. Patient still can not tolerate being upright. We had already discussed possible transfer earlier and with her continued inability to be upright (severe headache) transfer is still best option. Both patient and again agree that they would like to be transferred to [facility] for advanced care. There were no changes in physical exam of her incision site or extremity.
--- NOTE | 2020-01-02 17:11 | CASEMGMT ---
Addendum entered by Alen Ag 01/02/20 17:38: Attempted numerous calls to [place] re: authorization for transfer to [facility]. no answer, and message states they are closed @ 5 pm. SHAUN LEONARD had requested call back today, no call received. Spoke [address] Ramos and patient. Options are for patient to stay overnight, and call [facility] in am for determination for transfer to [facility] approval, or transfer patient to [facility] tonight. Patient would like to wait until am for [facility]'s decision on approving transfer to [facility] as [facility]. Call back to Dr. Ramos- she would like call back in am as soon as [facility] has made decision. Edita Newell Original Note: SHAUN LEONARD Note: Call received from Dr. Ramos. She explained patient needs to be monitored @ [facility] and this is urgent. Call received from [facility] rep- reviewed case and updated on reason for urgent transfer to [facility]. Case sent to [facility] nurse for review. Edita GARCIA RN AC
--- NOTE | 2020-01-02 19:01 | PCM.PN.SRG ---
Patient Problems: Active and Suspected Problems (Last Reviewed 08/30/19 @ 14:06 by Lindy Valadez) Migraine (Acute) Subjective: Patient complains of headache after hiccuping when eating at 30 degrees HOB. Was ok with HOB at 30 degrees prior to that. Currently comfortable flat. Denies nausea. Improved preoperative leg pain. - Physical Exam Vitals/I&O's: Vital Signs Temp Pulse Resp BP Pulse Ox 98.3 F 95 18 116/60 99 01/02/20 15:00 01/02/20 15:00 01/02/20 15:00 01/02/20 15:00 01/02/20 15:00 Oxygen Flow Rate (L/min) 3 Oxygen Delivery Method Room Air Weight: 182 lb 5.156 oz Body Mass Index (BMI) 32.3 Intake and Output for Last 24 Hours 12/31/19 01/01/20 01/02/20 23:59 23:59 23:59 Intake Total 2109 / 2509 1900 / 1900 Output Total 2049 Balance 0 / 1410 -149 / -149 Laboratory Results 01/02/20 05:54: WBC 14.0 H, RBC 4.26, Hgb 13.3, Hct 39.5, MCV 92.7, MCH 31.2, MCHC 33.7, RDW Std Deviation 43.0, RDW Coeff of April 13.0, Plt Count 201, MPV 10.2, Immature Gran % (Auto) 0.500, Neut % (Auto) 91.9 H, Lymph % (Auto) 5.1 L, [place] % (Auto) 2.4, Eos % (Auto) 0.0, Baso % (Auto) 0.1, Absolute Neuts (auto) 12.9 H, Absolute Lymphs (auto) 0.72 L, Nucleated RBC % 0 01/02/20 05:54: Sodium 139, Potassium 4.1, Chloride 107, Carbon Dioxide 25.0, Anion Gap 7, BUN 10, Creatinine 1.03 H, Estim Creat Clear Calc 48.81, Est GFR (MDRD) Af Amer 71, Est GFR (MDRD) Non-Af 59 L, BUN/Creatinine Ratio 9.7 L, Glucose 157 H, Calcium 8.3 L, Total Bilirubin 0.50, AST 16, ALT 37, Alkaline Phosphatase 82, Total Protein 6.3 L, Albumin 3.4, Globulin 2.9, Albumin/Globulin Ratio 1.2 Current Medications Hydrocodone Bitart/Acetaminophen ([place] 5mg-325mg) 1 - 2 tablet PO Q6H PRN PRN PRN Reason: Pain Score 1-10/10 Last Admin: 01/02/20 08:44 Dose: 1 tablet Documented by: Albuterol Sulfate (Ventolin Aerosols) 2.5 mg INHALATION Q2H PRN PRN PRN Reason: Dyspnea, wheezing Albuterol Sulfate (Ventolin Aerosols) 2.5 mg INHALATION Q6HWA.RT [facility] Last Admin: 01/02/20 13:26 Dose: 2.5 mg Documented by: Dexamethasone Sodium Phosphate (Decadron) 4 mg IV Q6 [facility] Last Admin: 01/02/20 17:57 Dose: 4 mg Documented by: Famotidine (Pepcid) 20 mg PO BID [facility] Last Admin: 01/02/20 07:11 Dose: 20 mg Documented by: Gabapentin (Neurontin) 300 mg PO TIDCM [facility] Last Admin: 01/02/20 17:57 Dose: 300 mg Documented by: Sodium Chloride () 250 mls @ 15 mls/hr IV .[id number] PRN PRN Reason: Saline Flush Last Infusion: 01/02/20 17:58 Dose: 0 mls/hr Documented by: Sodium Chloride () 250 mls @ 15 mls/hr IV .[id number] PRN PRN Reason: Additional IVPB Infusion Valproic Acid 500 mg/ Dextrose 55 mls @ 50 mls/hr IV Q6 [facility] Last Admin: 01/02/20 17:57 Dose: 50 mls/hr Documented by: Ondansetron HCl (Zofran) 8 mg PO Q6H PRN PRN PRN Reason: NAUSEA Paroxetine HCl (Paxil Cr) 12.5 mg PO QHS [facility] Last Admin: 01/01/20 23:42 Dose: 12.5 mg Documented by: Promethazine HCl (Phenergan) 6.25 mg IV Q4H PRN PRN PRN Reason: NAUSEA/VOMITING Sodium Chloride () 10 - 40 ml IV UD PRN PRN Reason: SALINE FLUSH Last Admin: 01/02/20 17:57 Dose: 10 ml Documented by: Trazodone HCl (Desyrel) 50 mg PO QHS [facility] Medical Necessity - Tobacco Use Smoking Status: Former smoker - Patient notes smoking cigarette tobacco in college for short time period. Tobacco Use: Non-smoker Assessment/Plan All Active Problems (Last Reviewed 08/30/19 @ 14:06 by Lindy Valadez) Migraine (Acute) Segmental and somatic dysfunction of cervical region (Acute) Segmental and somatic dysfunction of thoracic region (Acute) Segmental and somatic dysfunction of pelvic region (Acute) Segmental and somatic dysfunction of lumbar region (Acute) Perirectal skin irritation (Acute) Post-menopausal bleeding (Acute) 1. status post left L5-S1 microdiscectomy 01/01/2020 2. headache Recommend transfer to [facility] for advanced care. Patient and seb want to transfer however the patient?s insurance has NOT approved the transfer. Discussed case with patient?s mattress spring encaser at length, Alen. They will hear back from the insurance company tomorrow morning. Discussed at length with the patient and her transferring to [facility] tonight or facilitating a transfer to an [facility]. The patient wishes to wait until tomorrow to hear the final decision from her insurance company. Plan of care discussed with the patient?s nurse as well as flat bedrest at this time and continued migraine medication treatment. Patient and verbalized understanding. Jah Darling PA-C, will reevaluate the patient tomorrow.
[2020-01-02] MEDS: traZODone 50 MG Tablet PO (22:53)
[2020-01-02] MEDS: Glycerin/Hypromellose/PEG400 15 ml Bottle 2 DRP EACH EYE (23:14)
[2020-01-02] MEDS: PARoxetine CR 12.5 MG Tablet PO (23:17)
[2020-01-03 04:33] VITALS: BP 107/63; PULSE 63; RESP 16; TEMP 36.6; O2SAT 96
[2020-01-03] MEDS: dexAMETHasone 4 MG/ML Vial IV ×2 (05:38→12:30)
[2020-01-03] MEDS: 0.9% Saline Lock 10 ML Syringe IV (05:40)
--- NOTE | 2020-01-03 05:58 | NURSING ---
[facility] called for an update on this pt. They are aware that transfer is dependent upon insurance approval. I asked them if insurance approval was obtained if they thought they would have a bed available today, and they responded yes.
[2020-01-03 06:51] LABS: Absolute Neutrophil Count 12.8 X10^3/uL (2.0-7.7); Basophil# 0.02 X10^3/uL; Basophil% 0.1 % (0-1); Hematocrit 38.8 % (37-47); Lymphocyte % 6.3 % (19-41); Mean Corp Hgb Conc 33.5 g/dL (32-36); Mean Corpuscular Hgb 31.3 pg (27.0-32.0); Mean Corpuscular Volume 93.3 fL (81-99); Mean Platelet Vol. 10.6 fl (6.2-12.0); Monocyte# 0.41 X10^3/uL; Monocyte% 2.9 % (0-10); NRBC Flagged by Analyzer 0 % (0-5); Neutrophil # 12.81 X10^3/uL (2.7-7.7); Platelet Count 195 K/mm3 (150-450); RBC Distribution Width CV 13.2 % (11.6-14.6); RBC Distribution Width SD 44.2 fl (35.1-43.9); Red Blood Count 4.16 M/mm3 (4.2-5.4); White Blood Count 14.2 K/mm3 (4.4-11.0)
[2020-01-03] MEDS: Glycerin/Hypromellose/PEG400 15 ml Bottle 2 DRP EACH EYE (07:52)
[2020-01-03] MEDS: Famotidine 20 MG Tablet PO (07:52)
[2020-01-03] MEDS: Gabapentin 300 MG Capsule PO ×2 (07:52→12:30)
[2020-01-03 07:56] VITALS: BP 109/69; PULSE 89; RESP 16; TEMP 36.4; O2SAT 97
--- NOTE | 2020-01-03 08:08 | NURSING ---
increased hob to 30 degrees. pt denies flood at this time
--- NOTE | 2020-01-03 09:09 | NURSING ---
increased hob to 45 degrees. no c/o hob
--- NOTE | 2020-01-03 09:21 | PCM.PN.ORT ---
Patient Problems: Active and Suspected Problems (Last Reviewed 08/30/19 @ 14:06 by Lindy Valadez) Migraine (Acute) Subjective: Patient states that she is doing well this morning. She states that she had a good night as she was able to sleep well and feels rested this morning. She has not had a headache since yesterday at the same time states that she has also been lying supine this whole time. She states that she has a little more discomfort in the back compared to yesterday but is still minor. She has no radiating pains down the leg and denies any numbness/tingling. Objective: Patient evaluated at her bedside at 7:30 AM. Upon entering the room patient was lying supine with some minor elevation in the head of her bed (15 degrees). She was alert and oriented x 3 and was pleasant and appropriate in conversation. She showed no signs of distress or discomfort upon entering. Incision site still had occlusive dressing at the same time showed no signs of infection or seroma. She had a little tenderness on the incision this morning. - Physical Exam Vitals/I&O's: Vital Signs Temp Pulse Resp BP Pulse Ox 97.5 F L 89 16 109/69 97 01/03/20 07:56 01/03/20 07:56 01/03/20 07:56 01/03/20 07:56 01/03/20 07:56 Oxygen Flow Rate (L/min) 3 Oxygen Delivery Method Room Air Weight: 182 lb 5.156 oz Body Mass Index (BMI) 32.3 Intake and Output for Last 24 Hours 01/01/20 01/02/20 01/03/20 23:59 23:59 23:59 Intake Total 2110 / 2510 2317.5 / 2317.5 487.25 / 487.25 Output Total 2350 / 2350 650 / 650 Balance 2110 / 1410 -32.5 / -32.5 -162.75 / -162.75 General: Alert, Oriented x3, Cooperative, No apparent distress Extremities: No clubbing, No cyanosis, No edema, No Calf Tenderness Skin: Incision - occlusive dressing still in place - no surrounding erythema or swelling that would indicate infection or seroma. Overlying gauze appears dry Musculoskeletal: No Tenderness to Palpation of Joints or Extremities Neurological: Deep Tendon Reflexes 2+/4 and Symmetrical, Neuro grossly intact, Muscle tone normal, Sensory exam intact to light touch and pain, - - She continues to have intact sensation with light touch throughout the extremity. She has intact motor function of the knee/ankle/toes. She has negative straight leg raise. Psych/Mental Status: Normal Affect, Appropriate Laboratory Results 01/03/20 05:55: WBC 14.2 H, RBC 4.16 L, Hgb 13.0, Hct 38.8, MCV 93.3, MCH 31.3, MCHC 33.5, RDW Std Deviation 44.2 H, RDW Coeff of April 13.2, Plt Count 195, MPV 10.6, Immature Gran % (Auto) 0.700, Neut % (Auto) 90.0 H, Lymph % (Auto) 6.3 L, [place] % (Auto) 2.9, Eos % (Auto) 0.0, Baso % (Auto) 0.1, Absolute Neuts (auto) 12.8 H, Absolute Lymphs (auto) 0.90, Nucleated RBC % 0 Current Medications Hydrocodone Bitart/Acetaminophen ([place] 5mg-325mg) 1 - 2 tablet PO Q6H PRN PRN PRN Reason: Pain Score 1-10/10 Last Admin: 01/02/20 08:44 Dose: 1 tablet Documented by: Albuterol Sulfate (Ventolin Aerosols) 2.5 mg INHALATION Q2H PRN PRN PRN Reason: Dyspnea, wheezing Albuterol Sulfate (Ventolin Aerosols) 2.5 mg INHALATION Q6HWA.RT [facility] Last Admin: 01/03/20 07:52 Dose: Not Given Documented by: Dexamethasone Sodium Phosphate (Decadron) 4 mg IV Q6 [facility] Last Admin: 01/03/20 05:38 Dose: 4 mg Documented by: Famotidine (Pepcid) 20 mg PO BID [facility] Last Admin: 01/03/20 07:52 Dose: 20 mg Documented by: Gabapentin (Neurontin) 300 mg PO TIDCM [facility] Last Admin: 01/03/20 07:52 Dose: 300 mg Documented by: Sodium Chloride () 250 mls @ 15 mls/hr IV .[id number] PRN PRN Reason: Saline Flush Last Infusion: 01/03/20 07:40 Dose: 15 mls/hr Documented by: Sodium Chloride () 250 mls @ 15 mls/hr IV .[id number] PRN PRN Reason: Additional IVPB Infusion Valproic Acid 500 mg/ Dextrose 55 mls @ 50 mls/hr IV Q6 [facility] Last Infusion: 01/03/20 07:40 Dose: Infused Documented by: Ondansetron HCl (Zofran) 8 mg PO Q6H PRN PRN PRN Reason: NAUSEA Paroxetine HCl (Paxil Cr) 12.5 mg PO QHS [facility] Last Admin: 01/02/20 23:17 Dose: 12.5 mg Documented by: Promethazine HCl (Phenergan) 6.25 mg IV Q4H PRN PRN PRN Reason: NAUSEA/VOMITING Sodium Chloride () 10 - 40 ml IV UD PRN PRN Reason: SALINE FLUSH Last Admin: 01/03/20 05:40 Dose: 10 ml Documented by: Trazodone HCl (Desyrel) 50 mg PO QHS [facility] Last Admin: 01/02/20 22:53 Dose: 50 mg Documented by: Medical Necessity - Tobacco Use Smoking Status: Former smoker - Patient notes smoking cigarette tobacco in college for short time period. Tobacco Use: Non-smoker Assessment/Plan All Active Problems (Last Reviewed 08/30/19 @ 14:06 by Lindy Valadez) Migraine (Acute) Segmental and somatic dysfunction of cervical region (Acute) Segmental and somatic dysfunction of thoracic region (Acute) Segmental and somatic dysfunction of pelvic region (Acute) Segmental and somatic dysfunction of lumbar region (Acute) Perirectal skin irritation (Acute) Post-menopausal bleeding (Acute) Patient evaluated today 2 days post-op for microdiscectomy of the lumbar spine. She had a good night last night without headaches and her pain is well controlled. She said she had not been upright yet at the same time nursing said that she did get up to use the restroom around shift change and she stated that she did not have pains in doing so. She was eating this morning and had 2 hiccups that did not cause headache today. Incision is clean and dry without signs of infection or seroma. She has no signs of DVT. She has normal sensation throughout the extremity. She has intact motor function of the extremity. She has pretty normal 5/5 strength in the ankle with plantar flexion and dorsiflexion. She is a little week/hesitant with movements of the knee and with hip flexion. She has negative straight leg raises today. At this time patient is to continue to try and elevate the head of the bed on a gradual basis (15 degrees every 45-60 minutes). If she is able to tolerate being upright in bed ( no return of headache) then will try and have her get up and walk, use the restroom, etc. If there is continued improvement then will consider holding off transfer and possibly look to discharge home. Patient understands this and is agreeable to plan to see how elevation goes today.
[2020-01-03] MEDS: BENZOCAINE/MENTHOL 1 LOZENGE MUCOUS MEM (10:10)
--- NOTE | 2020-01-03 10:12 | NURSING ---
increased hob to 60 degrees. no c/o flood
--- NOTE | 2020-01-03 10:36 | CASEMGMT ---
SHAUN LEONARD received call from Shayna at [employer]. Patient is approved for transfer to [facility] with in-network benefits subject to balance billing. SHAUN LEONARD updated that patient and Dr. Ramos regarding approval for transfer to [facility].
[2020-01-03 11:05] VITALS: PULSE 81; RESP 18
[2020-01-03] MEDS: Albuterol 2.5 MG/3 ML VIAL.NEB. INHALATION (11:05)
[2020-01-03 11:43] VITALS: BP 107/72; PULSE 81; RESP 16; TEMP 37.2; O2SAT 100
[2020-01-03] MEDS: Vitamin B Comp W-C Capsule 1 CAP PO (12:28)
--- NOTE | 2020-01-03 12:53 | PCM.PROGNOTE ---
<Bhavna Morales - Last Filed: 01/03/20 13:02> Patient Problems: Active and Suspected Problems (Last Reviewed 08/30/19 @ 14:06 by Lindy Valadez) Migraine (Acute) Subjective: Patient seen and examined. Denies further headache. Complains of sore mouth and scratchy throat following anesthesia/surgery. Denies significant pain. Per surgery, possible discharge home later today if continued improvement pending no further headache with patient out of bed. - Physical Exam Vitals/I&O's: Vital Signs Temp Pulse Resp BP Pulse Ox 98.9 F 81 16 107/72 100 01/03/20 11:43 01/03/20 11:43 01/03/20 11:43 01/03/20 11:43 01/03/20 11:43 Oxygen Flow Rate (L/min) 3 Oxygen Delivery Method Room Air Weight: 182 lb 5.156 oz Body Mass Index (BMI) 32.3 Intake and Output for Last 24 Hours 01/01/20 01/02/20 01/03/20 23:59 23:59 23:59 Intake Total 2110 / 2510 2317.5 / 2317.5 860.50 / 860.50 Output Total 2350 / 2350 1450 / 1450 Balance 2110 / 1410 -32.5 / -32.5 -589.50 / -589.50 General: Alert, Oriented x3, Cooperative HEENT: Atraumatic, PERRLA, EOMI, Normocephalic Neck: Supple, No JVD, Negative Carotid Bruits Lungs: Clear to auscultation, Normal air movement Cardiovascular: Regular rate, No murmurs Abdomen: Bowel Sounds Present, Soft, Non Tender Extremities: No edema, Capillary Refill Less than 3 Seconds Skin: No rashes, No breakdown Musculoskeletal: No Tenderness to Palpation of Joints or Extremities Neurological: Cranial nerves II-XII grossly intact, Neuro grossly intact Psych/Mental Status: Normal Affect, Appropriate Laboratory Results 01/03/20 05:55: WBC 14.2 H, RBC 4.16 L, Hgb 13.0, Hct 38.8, MCV 93.3, MCH 31.3, MCHC 33.5, RDW Std Deviation 44.2 H, RDW Coeff of April 13.2, Plt Count 195, MPV 10.6, Immature Gran % (Auto) 0.700, Neut % (Auto) 90.0 H, Lymph % (Auto) 6.3 L, [place] % (Auto) 2.9, Eos % (Auto) 0.0, Baso % (Auto) 0.1, Absolute Neuts (auto) 12.8 H, Absolute Lymphs (auto) 0.90, Nucleated RBC % 0 Current Medications Hydrocodone Bitart/Acetaminophen ([place] 5mg-325mg) 1 - 2 tablet PO Q6H PRN PRN PRN Reason: Pain Score 1-10 Last Admin: 01/02/20 08:44 Dose: 1 tablet Documented by: Albuterol Sulfate (Ventolin Aerosols) 2.5 mg INHALATION Q2H PRN PRN PRN Reason: Dyspnea, wheezing Last Admin: 01/03/20 11:05 Dose: 2.5 mg Documented by: Albuterol Sulfate (Ventolin Aerosols) 2.5 mg INHALATION Q6HWA.RT [facility] Last Admin: 01/03/20 07:52 Dose: Not Given Documented by: Dexamethasone Sodium Phosphate (Decadron) 4 mg IV Q6 [facility] Last Admin: 01/03/20 12:30 Dose: 4 mg Documented by: Famotidine (Pepcid) 20 mg PO BID [facility] Last Admin: 01/03/20 07:52 Dose: 20 mg Documented by: Gabapentin (Neurontin) 300 mg PO TIDCM [facility] Last Admin: 01/03/20 12:30 Dose: 300 mg Documented by: Sodium Chloride () 250 mls @ 15 mls/hr IV .[id number] PRN PRN Reason: Saline Flush Last Infusion: 01/03/20 12:33 Dose: 0 mls/hr Documented by: Sodium Chloride () 250 mls @ 15 mls/hr IV .[id number] PRN PRN Reason: Additional IVPB Infusion Valproic Acid 500 mg/ Dextrose 55 mls @ 50 mls/hr IV Q6 [facility] Last Admin: 01/03/20 12:28 Dose: 50 mls/hr Documented by: Multivitamins (Allbee W/C Caplet, Thera B Comp/C) 1 capsule PO DAILYCM [facility] Last Admin: 01/03/20 12:28 Dose: 1 capsule Documented by: Ondansetron HCl (Zofran) 8 mg PO Q6H PRN PRN PRN Reason: NAUSEA Paroxetine HCl (Paxil Cr) 12.5 mg PO QHS [facility] Last Admin: 01/02/20 23:17 Dose: 12.5 mg Documented by: Promethazine HCl (Phenergan) 6.25 mg IV Q4H PRN PRN PRN Reason: NAUSEA/VOMITING Sodium Chloride () 10 - 40 ml IV UD PRN PRN Reason: SALINE FLUSH Last Admin: 01/03/20 05:40 Dose: 10 ml Documented by: Throat Lozenges (Cepacol Sore Throat Lozenge) 1 lozenge MUCOUS MEM Q2H PRN PRN PRN Reason: sore mouth Last Admin: 01/03/20 10:10 Dose: 1 lozenge Documented by: Trazodone HCl (Desyrel) 50 mg PO QHS [facility] Last Admin: 01/02/20 22:53 Dose: 50 mg Documented by: Medical Necessity - Tobacco Use Smoking Status: Former smoker - Patient notes smoking cigarette tobacco in college for short time period. Tobacco Use: Non-smoker Assessment/Plan All Active Problems (Last Reviewed 08/30/19 @ 14:06 by Lindy Valadez) Migraine (Acute) Segmental and somatic dysfunction of cervical region (Acute) Segmental and somatic dysfunction of thoracic region (Acute) Segmental and somatic dysfunction of pelvic region (Acute) Segmental and somatic dysfunction of lumbar region (Acute) Perirectal skin irritation (Acute) Post-menopausal bleeding (Acute) 1. Migraine cephalgia-headache resolved. On gabapentin at baseline. Placed on IV Decadron and IV Depakote. 2. Reactive leukocytosis-no evidence of infection. 3. Status post left L5-S1 microdiscectomy secondary to left L5-S1 disc herniation 01/01/2020-management per Dr. Rmaos. 4. Chronic mild intermittent asthma-as needed albuterol aerosol. 5. Depression-continue paroxetine, trazodone regimen. DVT prophylaxis-SCDs Discharge planning: Per surgery. This patient was seen by CLAUDIA Luciano under the supervision of Dr. Mcdaniel. <Cornelio Mcdaniel - Last Filed: 01/03/20 13:52> Objective: Patient complain of sore mouth. Denies headache. Patient currently on 45 degree HOB. Photophobia. Vitals are within normal limit. On physical exam General: Alert, Oriented x3, Cooperative HEENT: Atraumatic, PERRLA, EOMI, Normocephalic, mild photophobia Oral: Tiny, whitish nodule/pimple-like present on upper left labial mucosa. No oral thrush or whitish patch seen in oral pharyngeal region. Neck: Supple, No JVD, Negative Carotid Bruits Lungs: Air entry equal in bilateral lung bases. No crepitation/rhonchi Cardiovascular: Regular rate, Regular Rhythm, Normal S1, Normal S2, No murmurs Abdomen: Bowel Sounds Present, Soft, Non Tender, Non-Distended : No renal angle tenderness. No suprapubic tenderness. Extremities: No edema, Capillary Refill Less than 3 Seconds Back: Surgical dressing is dry. No palpable fluid collection around surgical wound. No tenderness. Skin: No rashes, No breakdown Musculoskeletal: No Tenderness to Palpation of Joints or Extremities Neurological: Cranial nerves II-XII grossly intact, Deep Tendon Reflexes 2+/4 and Symmetrical, Neuro grossly intact Psych/Mental Status: Normal Affect, Appropriate - Physical Exam Vitals/I&O's: Vital Signs Temp Pulse Resp BP Pulse Ox 98.9 F 81 16 107/72 100 01/03/20 11:43 01/03/20 11:43 01/03/20 11:43 01/03/20 11:43 01/03/20 11:43 Oxygen Flow Rate (L/min) 3 Oxygen Delivery Method Room Air Weight: 182 lb 5.156 oz Body Mass Index (BMI) 32.3 Intake and Output for Last 24 Hours 01/01/20 01/02/20 01/03/20 23:59 23:59 23:59 Intake Total 2110 / 2510 2317.5 / 2317.5 915.50 / 915.50 Output Total 2350 / 2350 1450 / 1450 Balance 2110 / 1410 -32.5 / -32.5 -534.50 / -534.50 Laboratory Results 01/03/20 05:55: WBC 14.2 H, RBC 4.16 L, Hgb 13.0, Hct 38.8, MCV 93.3, MCH 31.3, MCHC 33.5, RDW Std Deviation 44.2 H, RDW Coeff of April 13.2, Plt Count 195, MPV 10.6, Immature Gran % (Auto) 0.700, Neut % (Auto) 90.0 H, Lymph % (Auto) 6.3 L, [place] % (Auto) 2.9, Eos % (Auto) 0.0, Baso % (Auto) 0.1, Absolute Neuts (auto) 12.8 H, Absolute Lymphs (auto) 0.90, Nucleated RBC % 0 Current Medications Hydrocodone Bitart/Acetaminophen ([place] 5mg-325mg) 1 - 2 tablet PO Q6H PRN PRN PRN Reason: Pain Score 1-10/10 Last Admin: 01/02/20 08:44 Dose: 1 tablet Documented by: Albuterol Sulfate (Ventolin Aerosols) 2.5 mg INHALATION Q2H PRN PRN PRN Reason: Dyspnea, wheezing Last Admin: 01/03/20 11:05 Dose: 2.5 mg Documented by: Albuterol Sulfate (Ventolin Aerosols) 2.5 mg INHALATION Q6HWA.RT [facility] Last Admin: 01/03/20 13:06 Dose: Not Given Documented by: Dexamethasone Sodium Phosphate (Decadron) 4 mg IV Q6 [facility] Last Admin: 01/03/20 12:30 Dose: 4 mg Documented by: Famotidine (Pepcid) 20 mg PO BID [facility] Last Admin: 01/03/20 07:52 Dose: 20 mg Documented by: Gabapentin (Neurontin) 300 mg PO TIDCM [facility] Last Admin: 01/03/20 12:30 Dose: 300 mg Documented by: Sodium Chloride () 250 mls @ 15 mls/hr IV .[id number] PRN PRN Reason: Saline Flush Last Infusion: 01/03/20 13:43 Dose: 15 mls/hr Documented by: Sodium Chloride () 250 mls @ 15 mls/hr IV .[id number] PRN PRN Reason: Additional IVPB Infusion Valproic Acid 500 mg/ Dextrose 55 mls @ 50 mls/hr IV Q6 [facility] Last Infusion: 01/03/20 13:43 Dose: Infused Documented by: Multivitamins (Allbee W/C Caplet, Thera B Comp/C) 1 capsule PO DAILYCM [facility] Last Admin: 01/03/20 12:28 Dose: 1 capsule Documented by: Ondansetron HCl (Zofran) 8 mg PO Q6H PRN PRN PRN Reason: NAUSEA Paroxetine HCl (Paxil Cr) 12.5 mg PO QHS [facility] Last Admin: 01/02/20 23:17 Dose: 12.5 mg Documented by: Promethazine HCl (Phenergan) 6.25 mg IV Q4H PRN PRN PRN Reason: NAUSEA/VOMITING Sodium Chloride () 10 - 40 ml IV UD PRN PRN Reason: SALINE FLUSH Last Admin: 01/03/20 05:40 Dose: 10 ml Documented by: Throat Lozenges (Cepacol Sore Throat Lozenge) 1 lozenge MUCOUS MEM Q2H PRN PRN PRN Reason: sore mouth Last Admin: 01/03/20 10:10 Dose: 1 lozenge Documented by: Trazodone HCl (Desyrel) 50 mg PO QHS [facility] Last Admin: 01/02/20 22:53 Dose: 50 mg Documented by: Assessment/Plan This patient was seen in conjunction with INSULATION CUTTERBhavna. I have independently interviewed and examined the patient and reviewed pertinent history, examination findings, laboratory and plan of management. I have reviewed the note and agree with the documented findings with the few additional points. In brief, patient is 54-year-old female admitted with migraine headache episode along with nausea and vomiting after L5-S1 left-sided micro dissection for paracentral disc protrusion with left S1 radiculopathy. Migraine headache has much improved. Continue regimen of IV valproic acid, Depakote Toradol along with Neurontin for 48 to 72 hours. Headache is resolved. Spine orthopedic surgeon and PA note reviewed. Plan is to increase level of activity with inclination of bed then moving around. If she tolerates, she is stable to be discharged. Mild leukocytosis: Surgical site no tenderness or no fluctuation/collection suggestive of infection. Incentive spirometry. Mild anxiety and depression and asthma: Patient is on Paxil and is continued. Albuterol PRN. Oral soreness: No signs of fungal infection. Supportive treatment with Cepacol, vitamin B complex and C and a lot of oral fluid intake I have discussed my assessment with Bhavna THAKKAR and orders have been reviewed. Inpatient E&M: 56147 Subs Hosp L2
[2020-01-03] MEDS: BMX LIQUID 180 ML 10 ML PO (14:10)
[2020-01-03 14:31] VITALS: BP 115/72; PULSE 86; RESP 16; TEMP 36.9; O2SAT 96
--- NOTE | 2020-01-03 16:42 | PN.SURG_ITS ---
Patient Problems: Active and Suspected Problems (Last Reviewed 08/30/19 @ 14:06 by Lindy Valadez) Migraine (Acute) Subjective: Patient tolerated HOB. Denied headache. Voiding and ambulating. Asking to go home. - Physical Exam Vitals/I&O's: Vital Signs Temp Pulse Resp BP Pulse Ox 98.5 F 86 16 115/72 96 01/03/20 14:31 01/03/20 14:31 01/03/20 14:31 01/03/20 14:31 01/03/20 14:31 Oxygen Flow Rate (L/min) 3 Oxygen Delivery Method Room Air Weight: 182 lb 5.156 oz Body Mass Index (BMI) 32.3 Intake and Output for Last 24 Hours 01/01/20 01/02/20 01/03/20 23:59 23:59 23:59 Intake Total 2110 / 2510 2317.5 / 2317.5 1367.50 / 1367.50 Output Total 2350 / 2350 1450 / 1450 Balance 2110 / 1410 -32.5 / -32.5 -82.50 / -82.50 HEENT: BRETT Laboratory Results 01/03/20 05:55: WBC 14.2 H, RBC 4.16 L, Hgb 13.0, Hct 38.8, MCV 93.3, MCH 31.3, MCHC 33.5, RDW Std Deviation 44.2 H, RDW Coeff of April 13.2, Plt Count 195, MPV 10.6, Immature Gran % (Auto) 0.700, Neut % (Auto) 90.0 H, Lymph % (Auto) 6.3 L, [place] % (Auto) 2.9, Eos % (Auto) 0.0, Baso % (Auto) 0.1, Absolute Neuts (auto) 12.8 H, Absolute Lymphs (auto) 0.90, Nucleated RBC % 0 Current Medications Hydrocodone Bitart/Acetaminophen ([place] 5mg-325mg) 1 - 2 tablet PO Q6H PRN PRN PRN Reason: Pain Score 1-10/10 Last Admin: 01/02/20 08:44 Dose: 1 tablet Documented by: Albuterol Sulfate (Ventolin Aerosols) 2.5 mg INHALATION Q2H PRN PRN PRN Reason: Dyspnea, wheezing Last Admin: 01/03/20 11:05 Dose: 2.5 mg Documented by: Albuterol Sulfate (Ventolin Aerosols) 2.5 mg INHALATION Q6HWA.RT [facility] Last Admin: 01/03/20 13:06 Dose: Not Given Documented by: Dexamethasone Sodium Phosphate (Decadron) 4 mg IV Q6 [facility] Last Admin: 01/03/20 12:30 Dose: 4 mg Documented by: Famotidine (Pepcid) 20 mg PO BID [facility] Last Admin: 01/03/20 07:52 Dose: 20 mg Documented by: Gabapentin (Neurontin) 300 mg PO TIDCM [facility] Last Admin: 01/03/20 12:30 Dose: 300 mg Documented by: Sodium Chloride () 250 mls @ 15 mls/hr IV .[id number] PRN PRN Reason: Saline Flush Last Infusion: 01/03/20 14:12 Dose: Infused Documented by: Sodium Chloride () 250 mls @ 15 mls/hr IV .[id number] PRN PRN Reason: Additional IVPB Infusion Valproic Acid 500 mg/ Dextrose 55 mls @ 50 mls/hr IV Q6 [facility] Last Infusion: 01/03/20 13:43 Dose: Infused Documented by: Multivitamins (Allbee W/C Caplet, Thera B Comp/C) [facility] Last Admin: 01/03/20 12:28 Dose: 1 capsule Documented by: Ondansetron HCl (Zofran) 8 mg PO Q6H PRN PRN PRN Reason: NAUSEA Paroxetine HCl (Paxil Cr) 12.5 mg PO QHS [facility] Last Admin: 01/02/20 23:17 Dose: 12.5 mg Documented by: Promethazine HCl (Phenergan) 6.25 mg IV Q4H PRN PRN PRN Reason: NAUSEA/VOMITING Sodium Chloride () 10 - 40 ml IV UD PRN PRN Reason: SALINE FLUSH Last Admin: 01/03/20 05:40 Dose: 10 ml Documented by: Throat Lozenges (Cepacol Sore Throat Lozenge) 1 lozenge MUCOUS MEM Q2H PRN PRN PRN Reason: sore mouth Last Admin: 01/03/20 10:10 Dose: 1 lozenge Documented by: Trazodone HCl (Desyrel) 50 mg PO QHS [facility] Last Admin: 01/02/20 22:53 Dose: 50 mg Documented by: Medical Necessity - Tobacco Use Smoking Status: Former smoker - Patient notes smoking cigarette tobacco in college for short time period. Tobacco Use: Non-smoker Assessment/Plan All Active Problems (Last Reviewed 08/30/19 @ 14:06 by Lindy Valadez) Migraine (Acute) Segmental and somatic dysfunction of cervical region (Acute) Segmental and somatic dysfunction of thoracic region (Acute) Segmental and somatic dysfunction of pelvic region (Acute) Segmental and somatic dysfunction of lumbar region (Acute) Perirectal skin irritation (Acute) Post-menopausal bleeding (Acute) 1. status post left L5-S1 microdiscectomy 01/01/2020 2. headache, resolved Ms. Hill is significantly improved compared to yesterday. She has been able to ambulate as well as void standing up without recurrent headaches. She is tolerating a diet. At this time, the patient requests to go home instead of being transferred to [facility] given her significant improvement. Of note, her insurance company did approve the transfer to [facility] with the patient paying the difference for the hospitalization as if the patient were in network. Plan of care discussed with the patient as well as my physician assistant sales director, Jah Azevedo. Nursing verbalize understanding as well. The patient will follow up with her primary care physician next week and myself in two weeks after surgery. All questions answered to the patient?s satisfaction.
--- NOTE | 2020-01-03 17:33 | PCA ---
CALLED ADRIANNE AT [facility] TO LET HER KNOW THAT THE PATIENT IS GOING HOME INSTEAD OF BEING TRANSFERED
--- NOTE | 2020-01-03 18:10 | PCM.DC.SUM ---
Discharge Date and Diagnosis - Problem List Patient Problems: Active and Suspected Problems (Last Reviewed 08/30/19 @ 14:06 by Lindy Valadez) Migraine (Acute) Segmental and somatic dysfunction of cervical region (Acute) Segmental and somatic dysfunction of thoracic region (Acute) Segmental and somatic dysfunction of pelvic region (Acute) Segmental and somatic dysfunction of lumbar region (Acute) Date of Admission: 01/01/20 Date of Discharge: 01/03/20 - Primary Discharge Diagnosis Acute Problems: Post op L5-S1 microdiscectomy - Secondary Discharge Diagnosis Chronic Problems: Chronic Problems (Last Reviewed 08/30/19 @ 14:06 by Lindy Valadez) Anxiety and depression (Chronic) Asthma (Chronic) 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 Post-operatively patient was doing well having no incisional problems and very good relief of her lower extremity rediculopathy. During the evening she had a coughing episode that caused her to have a severe headache. Headache was intensified with upright position and any valsalva maneuvers. Headache was resolved with being supine. This was easily reproducible and therefore patient was admitted for monitoring of the headache as she was not comfortable going home in case another episode occurred. Patient was medically managed by hospitalist while admitted. Patient was placed supine at that time and was told to remain supine and to refrain from any valsalva maneuvers. Patient was able to rest comfortably throughout the night and had no return of headache. Patient did even get up to use the restroom in the night and had no symptoms. The next morning the head of the bed was elevated in 15 degree increments every 45-60 minutes until patient reached 60 degrees and was sitting upright. She also was able to eat and had two hiccups without causing headache (previously caused intense headache.) At that time she had no symptoms and therefore she was advance to some walking. Patient was able to walk within the halls and again had no return of symptoms. We discussed the possibility of return of symptoms with valsalva maneuvers and patient understands this risk and is comfortable going home at this time. They had already received discharge instructions and all questions were answered prior to them leaving. Patient Problems: Active and Suspected Problems (Last Reviewed 08/30/19 @ 14:06 by Lindy Valadez) Migraine (Acute) Segmental and somatic dysfunction of cervical region (Acute) Segmental and somatic dysfunction of thoracic region (Acute) Segmental and somatic dysfunction of pelvic region (Acute) Segmental and somatic dysfunction of lumbar region (Acute) - Physical Exam Vitals/I&O's: Vital Signs Temp Pulse Resp BP Pulse Ox 98.5 F 86 16 115/72 96 01/03/20 14:31 01/03/20 14:31 01/03/20 14:31 01/03/20 14:31 01/03/20 14:31 Oxygen Flow Rate (L/min) 3 Oxygen Delivery Method Room Air Weight: 182 lb 5.156 oz Body Mass Index (BMI) 32.3 Intake and Output for Last 24 Hours 01/01/20 01/02/20 01/03/20 23:59 23:59 23:59 Intake Total 2110 / 2510 2317.5 / 2317.5 1367.50 / 1367.50 Output Total 2350 / 2350 1450 / 1450 Balance 2110 / 1410 -32.5 / -32.5 -82.50 / -82.50 General: Alert, Oriented x3, Cooperative, No apparent distress Extremities: No clubbing, No cyanosis, No edema, No Calf Tenderness Skin: Incision - no signs of infection or seroma. Minimal tenderness on palpation Neurological: Deep Tendon Reflexes 2+/4 and Symmetrical, Neuro grossly intact, Muscle tone normal, Sensory exam intact to light touch and pain Psych/Mental Status: Normal Affect, Appropriate Laboratory Results 01/03/20 05:55: WBC 14.2 H, RBC 4.16 L, Hgb 13.0, Hct 38.8, MCV 93.3, MCH 31.3, MCHC 33.5, RDW Std Deviation 44.2 H, RDW Coeff of April 13.2, Plt Count 195, MPV 10.6, Immature Gran % (Auto) 0.700, Neut % (Auto) 90.0 H, Lymph % (Auto) 6.3 L, [place] % (Auto) 2.9, Eos % (Auto) 0.0, Baso % (Auto) 0.1, Absolute Neuts (auto) 12.8 H, Absolute Lymphs (auto) 0.90, Nucleated RBC % 0 Discharge Activity: - - no bending, twisting, or lifting greater than 5 pounds May shower in (days): 5 Ice area for (Minutes): 30 Weight Bearing Status: Weight bearing as tolerated Call your doctor if your incision/area has: Continuous Slow Oozing, Sudden Increased Bleeding, Increased Pain/ Swelling, Increased Redness, Foul Smelling Discharge, Swelling at the incision site Call your doctor if you observe: Fever of 101 or Higher, Coldness, Increased Pain, Inability to urinate, Inability to have a bowel movement, Shortness of breath, Dizziness, Uncontrolled pain Suture Line Care: Avoid Pulling/Pushing, Avoid Pinching/Bending Change Dressing in (Days):: 2 Remove Dressing in (days):: 2 Cleanse incision/area with: Keep Dressing Clean & Dry Home Medications: Medications to take at Discharge Albuterol IH (ProAir) [Proair Hfa] 1 - 2 puff INHALATION Q6H PRN PRN 12/18/19 Carboxymethylcellulose Sodium [Lubricant Eye Drop] 15 ml OP BID 12/18/19 Gabapentin [Neurontin] 300 mg PO BID 12/18/19 Hydrocortisone 1 applic TOPICAL BID PRN 12/18/19 Mometasone/Formoterol [Dulera 100 Mcg-5 Mcg Inhaler] 1 puff IH PRN PRN 12/18/19 Paroxetine HCl [Paxil Cr] 12.5 mg PO QHS 12/18/19 traZODone [Desyrel] 50 mg PO QHS 12/18/19 Hydrocodone/Acetaminophen [[place] 5-325 Tablet] 2 ea PO 4X/DAY PRN PRN 7 Days #48 tab 01/01/20 Following Prescrptions Were Given to Patient: Hydrocodone/Acetaminophen [[place] 5-325 Tablet] 2 ea PO 4X/DAY PRN PRN 7 Days #48 tab PRN Reason: Pain/Inflammation Transmission Status: Received by [facility]/pharmacy #[id number] Primary Care Physician: Natasha Chance MD [Primary Care Provider] - Medical Necessity - Tobacco Use Smoking Status: Former smoker - Patient notes smoking cigarette tobacco in college for short time period. Tobacco Use: Non-smoker Meaningful Use Info Meaningful Use Diagnoses (Choose all that apply): None applicable
--- NOTE | 2020-01-09 13:37 | PCM.HP.STD ---
Problem List (1) Lumbar radiculopathy Status: Chronic History of Present Illness Date of Admission: 01/01/20 Chief Complaint: back and left leg pain Ms. Hill is a 54 year old RHD female who presents with 50% back pain and 50% left buttock, posterior thigh, posterior calf and plantar foot pain. She has numbness in her toes and plantar foot. 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 She states her symptoms are worsening. She has tried advil as needed and CBD, but is no longer on it. She was seen at [facility] on 09/26/2019 and started on gabapentin, which she takes one at night secondary to dizziness during the day. She has completed physical therapy with Dr. Gustafson, to include tens unit. She has had no aqua therapy. She states her pain is worse with standing and walking and improved with laying. She appears more comfortable today sitting in a chair where as at her appointment in September, she was laying on the clinic bed. She denies falls, gait instability, bowel or bladder issues or difficulty with hand dexterity. She has had no spine surgeries or injections. She denies constitutional symptoms. She is planning to go swimming today. She has asthma, psoriasis and eczema not on infusions or oral steroids, and anxiety/depression. She has fibromyalgia. 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) L5/S1 Lumbar radiculopathy (Chronic) Medical History: Medical History (Last Reviewed 08/30/19 @ 14:06 by Lindy Valadez) Anxiety F41.9 Environmental allergies Z91.09 High cholesterol E78.00 Allergies meperidine [From Demerol] Allergy (Verified 01/08/20 09:17) unknown Home Medications: Ambulatory Orders Medication Instructions Recorded Albuterol IH (ProAir) [Proair Hfa] 1 - 2 puff INHALATION Q6H PRN PRN 12/18/19 Carboxymethylcellulose Sodium 15 ml OP BID 12/18/19 [Lubricant Eye Drop] Gabapentin [Neurontin] 300 mg PO BID 12/18/19 Hydrocortisone 1 applic TOPICAL BID PRN 12/18/19 Mometasone/Formoterol [Dulera 100 1 puff IH PRN PRN 12/18/19 Mcg-5 Mcg Inhaler] Paroxetine HCl [Paxil Cr] 12.5 mg PO QHS 12/18/19 traZODone [Desyrel] 50 mg PO QHS 12/18/19 Acetaminophen/Butalbital/Caffe 1 tab PO Q6H PRN PRN #7 tab 01/08/20 [Fioricet] Surgical History: Surgical History (Last Reviewed 08/30/19 @ 14:06 by Lindy Valadez) Dental root implant present Z97.2 Heel spur M77.30 Hx of LASIK Z98.890 Hx of breast reduction, elective Z98.890 Surgical History: - - Recent microdiscectomy, bilateral breast reduction, bilateral eye surgery. Psychiatric History: Anxiety, Depression MATERIAL MAN History: No pertinent MATERIAL MAN history Lives: Spouse/ Significant Other Smoking Status: Never smoker Tobacco Use: Non-smoker Alcohol: Occasional Drugs: None - *Family History Maternal Family History: Family History (Last Reviewed 08/30/19 @ 14:06 by Lindy Valadez) Grandfather Diabetes Father Hyperlipidemia Lupus Celiac disease Mother ALS (amyotrophic lateral sclerosis) History Items: Cancer, - - Mother with history of ALS. Paternal Family History: Family History (Last Reviewed 08/30/19 @ 14:06 by Lindy Valadez) Grandfather Diabetes Father Hyperlipidemia Lupus Celiac disease Mother ALS (amyotrophic lateral sclerosis) History Items: Cancer, High Cholesterol, - - Father with a history of lupus and celiac disease. VTE Information - Inpt Only VTE Present on Admission: Yes VTE Mechan Device Prophylaxis: SCD's VTE Pharm Prophylaxis ordered?: No Reason prophylaxis not ordered:: Procedure Not Indicated Objective: Spine Neuro: Yes Clonus (none), Fernández's ( negative bilaterally) and Straight Leg Raise (positive on the left) General: alert, oriented x3 Skin: Yes dysraphism (none) Capillary Refill <2sec: Yes Gait: antalgic, other (able to heel and toe walk) Motor: strength 5/5 throughout Sensory Exam: other (decreased in left toes) DTR's: Rt Triceps: 2+, Lt Triceps: 2+, Rt Biceps: 2+, Lt Biceps: 2+, Rt Brachioradialis: 2+, Lt Brachioradialis: 2+, Rt Patellar: 2+, Lt Patellar: 2+, Rt Ankle: 2+, Lt Ankle: 2+ Coordination: tandem gait normal SPINE TESTING CERVICAL THORACIC LUMBAR SLR: Positive, Left Musculoskeletal Cervical Spine: cervical ROM normal Thoracic/Lumbar Spine: pain with thoraco-lumbar ROM (worse with lumbar extension), paraspinal tenderness Strength 0=absent - 5=normal Deltoid R (C5): 5, Deltoid L (C5): 5, R Bicep (C5-6): 5, L Bicep (C5-6): 5, R Wrist Extensor (C6): 5, L Wrist Extensor (C6): 5, R Tricep (C7): 5, L Tricep (C7): 5, R Finger Flexors (C8): 5, L Finger Flexors (C8): 5, R First Dorsal Interossei (C8): 5, L First Dorsal Interossei (C8): 5, R Hip Flexor (L1-3): 5, L Hip Flexor (L1-3): 5, R Quadriceps (L2-4): 5, L Quadriceps (L2-4): 5, R Anterior Tibialis (L4-5): 5, L Anterior Tibialis (L4-5): 5, R Hamstrings (L5-S1): 5, L Hamstrings (L5-S1): 5, GS (S1): 5, L GS (S1): 5, R Peroneals (S1): 5, L Peroneals (S1): 5 - Physical Exam Vitals/I&O's: Vital Signs Temp Pulse Resp BP Pulse Ox 98.5 F 86 16 115/72 96 01/03/20 14:31 01/03/20 14:31 01/03/20 14:31 01/03/20 14:31 01/03/20 14:31 Oxygen Flow Rate (L/min) 3 Oxygen Delivery Method Room Air Weight: 182 lb 5.156 oz Body Mass Index (BMI) 32.3 General: Alert, Oriented x3 Psych/Mental Status: Normal Affect, Appropriate Assessment/Plan All Active Problems (Last Reviewed 08/30/19 @ 14:06 by Lindy Rosado Migraine (Acute) Segmental and somatic dysfunction of cervical region (Acute) Segmental and somatic dysfunction of thoracic region (Acute) Segmental and somatic dysfunction of pelvic region (Acute) Segmental and somatic dysfunction of lumbar region (Acute) Perirectal skin irritation (Acute) Post-menopausal bleeding (Acute) Plan Imaging: MRI (lumbar spine 08/29/2019): diffuse spondylosis with left L5-S1 disc herniation with lateral recess stenosis XR lumbar spine 08/06/2019 reveals diffuse spondylosis I/R/P: 1. back pain 2. left lumbar radiculopathy 3. fibromyalgia 4. psoriasis Ms. Hill presents with back pain and lumbar radiculopathy. The natural history and course of the symptomatology of lumbar radiculopathy was discussed in detail with the patient. I answered all questions regarding the mode of onset, pathophysiology, symptoms, imaging findings, treatment options (both non-operative and operative) regarding her diagnosis. She has exhausted all conservative/nonoperative treatment measures to include physical therapy and medications therefore we will recommend surgical intervention, to include a left L5-S1 microdiscectomy. Over 30 minutes was spent in consultation with this patient. Risks, benefits and alternatives to surgery were discussed. Risks discussed include but are not limited to catastrophic complications of and blindness, risks of anesthesia, blood loss, infection, nerve injury, dural tear, reherniation, instability, failure to relieve symptoms, worsening of symptoms, adjacent level disease, need for further surgery, paralysis, and DVT/PE. She will need medical clearance. Chlorhexidine soap provided. Relayed to the patient the risks and benefits of surgery at this time as well as the risk of COVID-19. Full disclosure was conducted. All questions were answered. The procedure was discussed in detail. Surgical consent was signed and reviewed. The patient and verbalized understanding and agreed to comply with the treatment plan formulated.
== END 2020-01-03 17:27 | disposition home or self-care (01) ==
LOC: SDC 01-02 08:32 → MS3 01-02 08:32
PROVIDERS: Anesthesiology; Family Medicine; Physician Assistant; Admitting Provider Orthopaedic Surgery; PCP Internal Medicine; Referring Provider Orthopaedic Surgery; Visit Provider Orthopaedic Surgery
PROC: (CPT 63030; principal; 2020-01-01 12:00)
DX: M51.16 Intervertebral disc disorders with radiculopathy, lumbar region (principal); Z11.59 Encounter for screening for other viral diseases; M51.17 Intervertebral disc disorders with radiculopathy, lumbosacral region; F41.9 Anxiety disorder, unspecified; F32.9 Major depressive disorder, single episode, unspecified; K21.9 Gastro-esophageal reflux disease without esophagitis; K58.9 Irritable bowel syndrome, unspecified; G25.81 Restless legs syndrome; M99.03 Segmental and somatic dysfunction of lumbar region; M99.05 Segmental and somatic dysfunction of pelvic region; J45.20 Mild intermittent asthma, uncomplicated; G89.29 Other chronic pain; E78.5 Hyperlipidemia, unspecified; G43.909 Migraine, unspecified, not intractable, without status migrainosus; M99.02 Segmental and somatic dysfunction of thoracic region; M99.01 Segmental and somatic dysfunction of cervical region; Z79.899 Other long term (current) drug therapy; Z87.891 Personal history of nicotine dependence
CPT/HCPCS: 00630; 63030; 36415; 70450; 70460; 72020; 76000; 80053; 81001; 85025; 85610; 85730; 86850; 86900; 86901; 87081; 87635; 88304; 88311; 94640; 96361; 96365; 96366; 96375; 96376; 97161; 97165; 99218; 99251; G2023; J7030; J7050; J7120; A4216; G0378; G0379; G0463; J2405; U0003

== ENCOUNTER 2020-01-08 09:14 | Emergency (ER) | payer OTHER, SELFPAY ==
[2020-01-01 21:04] VITALS: BMI 32.3
[2020-01-08 09:15] VITALS: BP 152/105; PULSE 77; RESP 16; TEMP 36.3; O2SAT 98; BMI 31.8
--- NOTE | 2020-01-08 09:26 | ED.DCSUM_ITS ---
History of Present Illness Chief Complaint: Headache Narrative: 55-year-old female presents with headache. She states she does have a history of migraines but has not had problems with this recently. She states that last Tuesday she had a lumbar microdiscectomy and afterwards had a spinal headache. They did discuss possibly doing a blood patch however her headache improved. She a mild headache yesterday which got worse this morning. She has light sensitivity. Her states that her headache pain was so bad that she would not speak this morning. He gave her gabapentin and ibuprofen. This intense pain lasted for about 30 minutes. States that her lower back has been fine. She denies fever. Past Medical History - Allergies and Home Meds Allergies/Adverse Reactions: Allergies meperidine [From Demerol] Allergy (Verified 01/08/20 09:17) unknown Primary Care Physician: Natasha Chance MD [Primary Care Provider] - Prior records reviewed: Yes Surgical History: - - Recent microdiscectomy, bilateral breast reduction, bilateral eye surgery. Lives: Spouse/ Significant Other Smoking Status: Former smoker - Patient notes smoking cigarette tobacco in college for short time period. Alcohol: None Drugs: None - Family History Maternal Family History: Family History (Last Reviewed 08/30/19 @ 14:06 by Lindy Valadez) Grandfather Diabetes Father Hyperlipidemia Lupus Celiac disease Mother ALS (amyotrophic lateral sclerosis) Family History: Reports: Cancer, - - Mother with history of ALS. Paternal Family History: Family History (Last Reviewed 08/30/19 @ 14:06 by Lindy Valadez) Grandfather Diabetes Father Hyperlipidemia Lupus Celiac disease Mother ALS (amyotrophic lateral sclerosis) Family History: Reports: Cancer, High Cholesterol, - - Father with a history of lupus and celiac disease. Review of Systems General: Denies: Chills, Fever Eyes: Denies: Visual changes - bilaterally, Diplopia ENT: Denies: Rhinorrhea, Sore throat Cardiovascular: Denies: Chest pain Respiratory: Denies: Dyspnea, Cough Gastrointestinal: Reports: Nausea. Denies: Abdominal pain Genitourinary: Denies: Dysuria, Hematuria Musculoskeletal: Denies: Myalgias Skin: Denies: Rash Neurological: Reports: Headache, - Psych: Denies: Depression, Anxiety Allergy: Denies: Uticaria, Swelling of the mouth Physical Exam Vital Signs/Narrative: Vital Signs Temp Pulse Resp BP Pulse Ox 07/21/20 09:15 97.4 F L 77 16 152/105 H 98 General: Well nourished Head: Normocephalic, Atraumatic Eyes: Perrl, EOMI ENT: Moist mucous membranes Cardiovascular: Regular rate, Regular rhythm Respiratory: No distress, CTA bilaterally Abdomen: Soft Extremities: No edema Skin: Normal color, No rash Neurological: Alert, Oriented x3, Cranial nerves II-XII grossly intact Psychological: Normal affect Diagnostic/Tx/Re-eval Clinical Impression(s) from Imaging Studies Brain CT 01/08/20 09:36 IMPRESSION: Normal unenhanced CT scan of the brain. Electronically Signed: Yoel Castillo MD at 10:37 EDT , Service support , Laboratory Data 01/08/20 01/08/20 09:55 09:55 WBC 6.8 RBC 5.19 Hgb 15.8 H Hct 47.1 H MCV 90.8 MCH 30.4 MCHC 33.5 RDW Std Deviation 41.3 RDW Coeff of April 12.5 Plt Count 230 MPV 10.3 Immature Gran % (Auto) 0.700 Neut % (Auto) 66.3 Lymph % (Auto) 24.7 [place] % (Auto) 6.7 Eos % (Auto) 1.3 Baso % (Auto) 0.3 Absolute Neuts (auto) 4.5 Absolute Lymphs (auto) 1.67 Nucleated RBC % 0 Sodium 140 Potassium 4.3 Chloride 108 H Carbon Dioxide 30.0 Anion Gap 2 L BUN 14 Creatinine 0.91 Estim Creat Clear Calc 57.10 Est GFR (MDRD) Af Amer 83 Est GFR (MDRD) Non-Af 68 BUN/Creatinine Ratio 15.4 Glucose 116 H Calcium 8.8 - Medical Decision Making Patient is seen and evaluated for headache. She states is been a long time since she has had a migraine headache. She has a recent history of spinal surgery with spinal headache afterwards. I did obtain a CT of her brain which was normal. She had basic lab work drawn which was also normal. She is treated with Compazine, Benadryl, Toradol her headache is much improved. I feel she is stable to be discharged at this time. ED Disposition - Plan for ED Patient: Disposition: Home or Assisted Living Diagnosis: Migraine Instructions: ED Headache Unspecified Prescriptions: Acetaminophen/Butalbital/Caffe [Fioricet] 1 tab PO Q6H PRN PRN #7 tab PRN Reason: Headache Prescription Printed Referrals: Natasha Chance MD [Primary Care Provider] -
--- NOTE | 2020-01-08 09:36 | CT_ITS ---
STUDY: CT BRAIN WITHOUT CONTRAST REASON FOR EXAM: Female, 55 years old. HEADACHE SINCE BACK SURGERY LAST WEEK RADIATION DOSAGE (If Supplied By Facility): CTDIvol = ( 44.99 ) mGy, DLP = ( 796.11 ) mGycm TECHNIQUE: Transaxial CT imaging of the brain was performed without administration of intravenous contrast material. Individualized dose optimization techniques were used for this CT. COMPARISON: 01/02/2020 FINDINGS: Normal soft tissue structures. Normal calvarium. Normal size ventricles and extra-axial spaces for the patient''s age. Normal white matter tracts of the cerebral hemispheres. Normal basal ganglia and thalami. Normal brainstem. Normal cerebellum. There is no intracranial hemorrhage. There are no findings of an acute ischemic infarction. Normal visualized paranasal sinuses. CT/Brain/Head without Contrast IMPRESSION: Normal unenhanced CT scan of the brain. Electronically Signed: Yoel Castillo MD at 10:37 EDT , Service support ,
[2020-01-08] MEDS: 0.9% Normal Saline 1,000 ML 999 ML IV (10:02)
[2020-01-08] MEDS: DiphenhydrAMINE 50 MG/ML Syringe 25 MG IV (10:03)
[2020-01-08] MEDS: proCHLORPERazine 10 MG/2 ML Vial IV (10:03)
[2020-01-08 10:07] LABS: Absolute Lymphocyte Count 1.67 X10^3/uL (0.83-4.51); Absolute Neutrophil Count 4.5 X10^3/uL (2.0-7.7); Basophil# 0.02 X10^3/uL; Basophil% 0.3 % (0-1); Eosinophil# 0.09 X10^3/uL; Eosinophils% 1.3 % (0-5); Hematocrit 47.1 % (37-47); Hemoglobin 15.8 g/dL (12.0-15.0); Lymphocyte # 1.67 X10^3/ul (4.0); Lymphocyte % 24.7 % (19-41); Mean Corp Hgb Conc 33.5 g/dL (32-36); Mean Corpuscular Hgb 30.4 pg (27.0-32.0); Mean Corpuscular Volume 90.8 fL (81-99); Mean Platelet Vol. 10.3 fl (6.2-12.0); Monocyte# 0.45 X10^3/uL; Monocyte% 6.7 % (0-10); NRBC Flagged by Analyzer 0 % (0-5); Neutrophil # 4.47 X10^3/uL (2.7-7.7); Neutrophil % 66.3 % (47-70); Platelet Count 230 K/mm3 (150-450); RBC Distribution Width CV 12.5 % (11.6-14.6); RBC Distribution Width SD 41.3 fl (35.1-43.9); Red Blood Count 5.19 M/mm3 (4.2-5.4); White Blood Count 6.8 K/mm3 (4.4-11.0)
[2020-01-08 10:17] LABS: Anion Gap 2 (5-15); BUN 14 mg/dL (7-18); BUN/Creat Ratio 15.4 RATIO (10-20); Calcium,Total 8.8 mg/dL (8.5-10.1); Chloride 108 mmol/L (98-107); Creatinine, Serum 0.91 mg/dL (0.55-1.02); EST Glomerular Filtration Rate 68 mL/min (>60); Est Glom Filt Rate - Afr Amer 83 mL/min (>60); Glucose 116 mg/dL (74-106); Potassium 4.3 mmol/L (3.5-5.1); Sodium Level 140 mmol/L (136-145)
[2020-01-08] MEDS: Ketorolac 30 MG/ML Syringe IM (10:59)
[2020-01-08 12:03] VITALS: BP 133/78; PULSE 79; RESP 16; O2SAT 98
== END 2020-01-08 12:04 | disposition home or self-care (01) ==
PROVIDERS: Emergency Provider Student in an Organized Health Care Education/Training Program; PCP Internal Medicine
DX: G43.909 Migraine, unspecified, not intractable, without status migrainosus (principal); Z87.891 Personal history of nicotine dependence
CPT/HCPCS: 70450; 80048; 85025; 96361; 96372; 96374; 96375; 99283; J7030

== ENCOUNTER → 2020-01-15 09:34 | Outpatient (CLI) | payer OTHER, SELFPAY ==
[2020-01-08 09:15] VITALS: BMI 31.8
--- NOTE | 2020-01-15 09:43 | RAD_ITS ---
STUDY: X-RAY - CERVICAL SPINE REASON FOR EXAM: Female, 55 years old. Pain TECHNIQUE: 5 view(s) of the cervical spine were obtained. COMPARISON: None FINDINGS: There is no evidence of fracture or dislocation in the cervical spine. The dens is intact. The vertebral body heights are well-maintained. There are mild degenerative changes with disc space narrowing in the lower cervical spine. The prevertebral soft tissues are unremarkable. There is no radiodense foreign body. RAD/Cerv Spine 4 or 5 Views IMPRESSION: No fracture or dislocation in the cervical spine. Mild degenerative changes in the lower cervical spine. Electronically Signed: Nahid Ireland, at 17:17 EDT Tel , Service support ,
== END ==
PROVIDERS: PCP Internal Medicine; Referring Provider Internal Medicine; Visit Provider Internal Medicine
DX: M54.2 Cervicalgia (principal)
CPT/HCPCS: 72050

== ENCOUNTER → 2020-01-21 07:19 | Outpatient (CLI) | payer OTHER, SELFPAY ==
[2020-01-15 10:17] VITALS: BMI 31.8
--- NOTE | 2020-01-21 07:27 | MRI_ITS ---
STUDY: MRI BRAIN WITH AND WITHOUT CONTRAST REASON FOR EXAM: Female, 55 years old. acute intractable headache after lumbar laminectomy 01/01/20 TECHNIQUE: Standardized multiplanar fat and water weighted pulse sequences were obtained. IV Dotarem 17ml was administered for the contrast portion of the examination. COMPARISON: None. FINDINGS: Normal size of the ventricles and extra-axial spaces for the patient''s age. Normal white matter tracts of the supratentorial brain. Normal bilateral basal ganglia. Normal thalami. There is no extra-axial fluid accumulation. Normal flow voids within the major intracranial circulation suggesting patency by spin echo criteria. Normal venous enhancement. There is no enhancing intra-axial or extra-axial abnormality. Normal sella turcica, pituitary gland, infundibular stalk, optic chiasm and hypothalamus. Normal tectal plate and pineal gland. Normal midbrain, blaine and medulla. Normal cerebellum. Normal basal cisterns. Normal bilateral temporal bones. Normal bilateral internal auditory canals. MRI/Brain W/WO Contrast IMPRESSION: Unremarkable unenhanced and enhanced MRI of the brain. Electronically Signed: Stephanie Ng MD at 8:19 EDT Tel , Service support ,
== END ==
PROVIDERS: PCP Internal Medicine; Referring Provider Psychiatry & Neurology Neurology; Visit Provider Psychiatry & Neurology Neurology
DX: R51 Headache (principal); Z98.1 Arthrodesis status
CPT/HCPCS: 70553; A9575

== ENCOUNTER 2020-01-23 13:26 | Emergency (ER) | payer OTHER, SELFPAY ==
[2020-01-15 10:17] VITALS: BMI 31.8
[2020-01-23 13:28] VITALS: BP 136/99; PULSE 116; RESP 19; TEMP 36.6; O2SAT 97; BMI 31.3
--- NOTE | 2020-01-23 14:00 | ED.VISSUMM ---
- ER Visit Summary Date of Service: 01/23/20 Chief Complaint: [Allergic reaction/hives] History of Present Illness: The patient is a 55 F [presents to the emergency department after she developed hives and itching that started yesterday. Patient states that her hands and feet feel swollen. She felt like her lips were getting swollen. Patient gives history that she had an MRI 2 days ago with and without contrast of her brain but the rash did not start for 24 hours. Patient also currently on Bactrim for history of a wound infection to her surgical site on her back. Patient gives history of surgery on her back on December 31 at L5-S1 dorsal hemilaminectomy and discectomy. Patient's been having intermittent headaches since that time. She does have history of migraines. She is seeing neurology currently. Patient states that she had a reaction recently to Benadryl when she was given it for a headache in the emergency department along with Compazine and Toradol. Patient states prior to that she had been taken Benadryl without difficulty.] Physical Examination: [HEENT-PERRLA, EOMI. Cranial nerves II through XII grossly intact. TMs clear. Mucous membranes moist. No adenopathy. No angioedema noted. Oropharynx is normal. Cardiovascular-regular rate and rhythm without murmur or ectopy Lungs-clear to auscultation, chest wall stable without crepitus or subcu emphysema Abdomen-normoactive bowel sounds, soft, nontender, no rebound or rigidity, no peritoneal signs. Skin exam-patient has erythematous raised rash on hands and feet as well as trunk and extremities. Rash is typical of her urticaria. Rash blanches on exam. No petechiae noted no vesicles noted. No evidence of Rocha-Johnathon syndrome. Extremities-intact ?4, normal range of motion, normal pulses, atraumatic] Test Results: [None indicated] Emergency Department Course and Treatment: [Patient was advised to discontinue her Bactrim. It is unclear if her rash is related to the Bactrim that she is currently on versus the MRI dye. Patient was medicated with Benadryl and Pepcid in the emergency department as she did not feel comfortable taking prednisone as she was told by her surgeon not to take steroids.] Treatment Plan: [Patient will be treated with Benadryl and Pepcid. She is given a prescription for prednisone if her symptoms do not improve and she will discuss with her surgeon.] Disposition: [Discharged home in stable condition. Patient advised to avoid Bactrim in the future and she may require treatment with steroids and Benadryl prior to future MRI dye.] Impression: [Allergic reaction Urticaria] This note was generated with [employer] dictation software. It may contain incorrect words, spelling, and punctuation that were not noted in review of the chart prior to signing ED Disposition - Plan for ED Patient: Referrals: Natasha Chance MD [Primary Care Provider] -
--- NOTE | 2020-01-23 14:05 | ED.DEP ---
ED Disposition - Plan for ED Patient: Instructions: ED General Allergic Reactions Prescriptions: Prednisone [Deltasone] 20 mg PO BID #10 tab Prescription Printed Famotidine [Pepcid] 20 mg PO DAILY #10 tab Prescription Printed Referrals: Natasha Chance MD [Primary Care Provider] - 3-5 Days
[2020-01-23] MEDS: Ibuprofen 200 MG Tablet 400 MG PO (15:09)
[2020-01-23] MEDS: Famotidine 20 MG Tablet PO (15:11)
[2020-01-23] MEDS: MethylPREDNISolone 125 MG/2 ML Vial IV (15:35)
[2020-01-23] MEDS: Famotidine 200 MG/20 ML MDV 20 MG in 0.9% Normal Saline (Pres. free 8 ML 300 MG IV (15:42)
[2020-01-23 16:04] VITALS: BP 101/72
[2020-01-23 16:05] LABS: CRP 9.03 mg/L (0.0-3.0)
[2020-01-23 16:11] LABS: Erythrocyte Sedimentation Rate < 1 mm/hr (0-30)
[2020-01-23 20:20] VITALS: BP 127/91; PULSE 101; RESP 18; O2SAT 98
--- NOTE | 2020-01-23 20:22 | ED.DCSUM_ITS ---
- ER Visit Summary Date of Service: 01/23/20 Chief Complaint: [] History of Present Illness: The patient is a 55 F [] Physical Examination: [] Test Results: [] Emergency Department Course and Treatment: [] Treatment Plan: [] Disposition: [] Impression: [] This note was generated with [employer] dictation software. It may contain incorrect words, spelling, and punctuation that were not noted in review of the chart prior to signing ED Disposition - Plan for ED Patient: Disposition: Home or Assisted Living Diagnosis: Anaphylaxis due to sulfur dioxide, Allergic angioedema Instructions: ED General Allergic Reactions, ED Angioedema Prescriptions: Prednisone [Deltasone] 20 mg PO BID #10 tab Prescription Printed Famotidine [Pepcid] 20 mg PO DAILY #10 tab Prescription Printed Referrals: Natasha Chance MD [Primary Care Provider] - 3-5 Days Additional Instructions: Since you have Benadryl take 1 Benadryl capsule every 6 hours for a total of 12 doses. Since you have [id number] Pepcid take 2 tablets in the morning and 2 in the afternoon for 3 days, for a total of 6 doses.
[2020-01-23 20:58] VITALS: BP 131/78; PULSE 97; RESP 16; O2SAT 98
--- NOTE | 2020-01-24 12:24 | ED.RN ---
THIS NURSE SPOKE WITH PT . PRESCRIPTION FOR PREDNISONE WAS NOT SENT TO [facility]. I SPOKE WITH DR BARNETT. HE IS GOING TO CALL IN A PRESCRIPTION TO [facility] IN [place]. PT MADE AWARE
== END 2020-01-23 21:00 | disposition home or self-care (01) ==
PROVIDERS: Emergency Provider Emergency Medicine; PCP Internal Medicine
DX: T78.3XXA Angioneurotic edema, initial encounter (principal); T88.6XXA Anaphylactic reaction due to adverse effect of correct drug or medicament properly administered, initial encounter; J45.909 Unspecified asthma, uncomplicated; F32.9 Major depressive disorder, single episode, unspecified; F41.9 Anxiety disorder, unspecified
CPT/HCPCS: 85652; 86140; 96365; 96366; 96372; 96375; 99283; J7040; A4216; J3490

== ENCOUNTER → 2020-02-11 08:56 | Outpatient (CLI) | payer OTHER, SELFPAY ==
[2020-01-29 08:23] VITALS: BMI 31.3
--- NOTE | 2020-02-11 08:56 | RAD_ITS ---
STUDY: X-RAY - LUMBAR SPINE REASON FOR EXAM: Female, 55 years old. POST OP L5-S1 X 2 MONTHS TECHNIQUE: 2 view(s) of the lumbar spine were obtained. COMPARISON: None FINDINGS: Normal lumbar lordosis. There is a levoscoliosis of the lumbar spine. There is a normal alignment of the vertebrae. Normal vertebral bodies and endplates. Normal disc space heights. The soft tissue structures are unremarkable. RAD/Lumbar Spine 2 or 3 Views IMPRESSION: Mild levoscoliosis. Electronically Signed: Fransisco Oswald MD at 17:20 EDT Tel , Service support ,
== END ==
PROVIDERS: PCP Internal Medicine; Referring Provider Physician Assistant; Visit Provider Physician Assistant
DX: Z98.890 Other specified postprocedural states (principal)
CPT/HCPCS: 72100

== ENCOUNTER 2020-06-10 10:30 | Outpatient (RCR) | payer OTHER, SELFPAY ==
[2020-01-29 08:23] VITALS: BMI 31.3
--- NOTE | 2020-02-14 12:57 | HP.PTEVAL_ITS ---
Patient's Visit Information JESSIE RAYMOND is a 55 year old F referred to Physical Therapy by WINSTON Starr with a diagnosis of S/P L5S1 LUMBAR MICRODISECTOMY 01/01/20. Date of Evaluation: 02/14/20 Physical Therapist: Dilcia Hernandez, PT, Cert MDT - Visit Plan Frequency: 2-3x /Week Duration: 4-6 Weeks Plan: AQUATIC THERAPY FOR POSTURE CORRECTION/STRENGTHENING, INSTRUCTION IN APPROPRIATE BODY MECHANICS AND ACTIVITY MODIFICATIONS. DLS STARTING WITH A NEUTRAL SPINE PROGRESSING ROM TOLERATED. OCTAVIANO LE ROM, STRETCHING AND STRENGTHENING. HEP INSTRUCTION. *MINIMAL LIFTING > 10 LBS, BENDING, PUSHING, PULLING, TWISTING AND OVER HEAD EXTENSION FOR 4-6 WEEKS. - Subjective Work/Leisure: UNEMPLOYEED. Disability: NO. Present symptoms: LEFT LOW BACK, THIGH AND LEG PAIN. NO LEFT LE NUMBNESS OR TINGLING. LOW BACK AND LLE PAIN IS BREIF WHEN IT OCCURS. LLE GIVES OUT. MIGRAINES STARTED AFTER SURGERY. GETTING INJECTIONS BY NEUROLOGIST FOR MIGRAINES. STATES JULIO'S ARE CONSTANT BUT MASSAGING NECK HELPS. Present since: 8 MONTH PRIOR TO SURGERY - APR 2019. LLE STARTED GIVING OUT ON HER AFTER RISING FROM SITTING STARTING ABOUT A WEEK AGO. PATIENT REPORTS DR. PERSON'S ELECTRICAL CALIBRATOR IS AWARE OF LEG STARTING TO GIVE OUT RECENTLY. Pain Scale: WORST 4/10, LEAST 0/10. Currently: 0/10. Commenced as a result of: HALF WAY BENT OVER AND SNEEZED REALLY HARD AND BLEW OUT A DISC. Symptoms at onset: SEVERE BACK PAIN. CAN'T REMEMBER IF LEG SXS. RIGHT AWAY. Worse: RISING FROM SITTING, BENDING, LIFTING, TWISTING. IF I DO THINGS I SHOULDN'T. ROLLING TO GET OUT OF BED AT NIGHT. DIFFICULTY INITIATING GAIT AFTER SITTING OR LYING. Better: PAINFREE MOST OF THE TIME. PAIN JUST GOES AWAY ON ITS OWN RATHER QUICKLY. Disturbed sleep: NO. Previous history/Previous treatment: HISTORY OF LOW BACK PAIN TREATED WITH PHYSICAL THE JEREMY HERE AT [facility] ABOUT 3 YEARS AGO AND PT PRIOR TO SURGERY NOVEMBER 2019. HAS A HISTORY OF SEEING CHIROPRACTORS TOO ON AND OFF FOR ABOUT 10 YEARS. NO LASHAY'S. NO BACK SURGERIES PRIOR TO THIS ONE. Treatment this episode: DISCECTOMY 01/01/2020. Coughing/sneezing/straining: NE. Gait: NO FALLS. LEFT KNEE GIVES OUT SOMETIMES AFTER SITTING AND IT OCCURS WITH BACK PAIN. LLE WONT' LISTEN SOMETIMES. Difficulty initiating urinatin: NO. Accidents: NO. Unexplained weight loss: NO. Imaging: RECENT X-RAY AT FOLLOW UP AND PATIENT REPORTS SHE WAS TOLD IT LOOKS GOOD. PMH: FIBROMYALGIA, SOME JULIO'S IN THE PAST BUT NOT NEAR SEVERE SINCE SURGERY. OTHER: TRYING TO WALK. WALKS ABOUT A HALF MILE EVERY DAY BUT HAS WALKED UP TO A MILE. CURRENT RESTICTIONS: NO HORSE BACK RIDING. OTHERWISE PATIENT REPORTS SHE IS NOT SURE WHAT RESTICTIONS SHE HAS. STATES SHE IS ALOWED TO DO WATER THEARAPY AND RIDE A BIKE. STATES SHE IS STILL NOT ALLOWED TO BEND. OTHER: FOLLOW UP WITH DR. PERSON PENDING 03/11/20 - Objective Sitting/Standing Posture: POOR. Lordosis: RECUCED. Lateral shift: NO. Relevant shift: N/A. Active Correction of posture: NE. Other Observations: WHEN PATIENT STOOD UP IN THE LOBBY HER LEFT KNEE BUCKLED AND SHE HAD DIFFICULTY INITIALLY STANDING UP STRAIGHT BUT WITHIN A FEW SECONDS SHE WAS FINE WITH NORMAL GAIT. SHE IS WEARING FLIP FLOPS AND THIS PT RECOMMENDED GOOD FOOTWEAR WHILE RECOVERING FROM SURGERY. Motor deficit: OCTAVIANO LE 5/5 WITH MMT'ING EXCEPT HIPS GRADED 4-/5. Sensory deficit: OCTAVIANO LE LIGHT TOUCH SENSATION INTACT AND SYMMETRICAL. ROM deficit: OCTAVIANO LE'S WFL. Reflexes: RIGHT QUAD 2/3. OCTAVIANO ACHILLES AND LEFT QUAD ABSENT. Dural Signs: NEGATIVE OCTAVIANO LE'S. Lumbar mvmt loss: NT. Core strength: POOR. Palpation: INCISION LOOKS GOOD WITHOUT ANY SIGNS OF INFECTION. NO LUMBAR TENDERNESS. TREATMENT: NEUROMUSCULAR REEDUCATION - RETRAINING OF MVMT AND POSTURE FOR SITTING, LYING AND STANDING ACTIVITIES. INITIATED HEP WITH OCTAVIANO LE DURAL STRETCHING AND ISO ABDOMINALS. - Goals Goal 1:: DECREASE C/O BACK AND LLE SX'S Goal Time Frame: 4-6 Weeks Goal 2:: IMPROVE ADL, LIFTING, WALKING, SITTING, STANDING, SOCIAL LIFE, TRAVEL AND HOMEMAKING FUNCTION Goal Time Frame: 4-6 Weeks Goal 3:: INSTRUCT IN PROPHYLAXIS Goal Time Frame: 4-6 Weeks - Anticipated Interventions Patient/Client Instruction: Educate patient on: Condition, Plan of Care, Risk Factors, Benefits of Fitness Program For the Purpose of:: To improve self management Therapeutic Exercise to Include: Strength training, Body mechanics, Postural training, Flexibilty training, Gait and locomotor training, Neuromotor development, In an aquatic setting, Dynamic Lumbar Stabilization For the Purpose of:: To decrease pain, To increase ROM, To improve muscle performance and motor function, To increase tolerance to activity/condition/position, To improve ability of physical actions for ho me/community/work/leisure, To improve gait and locomotor functions Thank you for the opportunity to evaluate your patient. For Medicare and Medicare HMO plans, please review the plan of care and approve it. It will need to be FAXED BACK to us at [phone] for Medicare purposes. For Medicare only, by signing this I certify the plan of care. Please let me know if there are questions or concerns regarding this plan of care. Physician Signature: Date:
--- NOTE | 2020-03-20 13:33 | HP.PTREVAL_ITS ---
WINSTON Starr, It has been my pleasure to treat JESSIE RAYMOND over the last 12 visits for S/P L5S1 LUMBAR MICRODISECTOMY 01/01/20. Please see the progress note below for an update on the physical therapy plan of care! Subjective: PATIENT APPOLOGETIC FOR ARRIVING VERY LATE FOR WEI'T. STATES SHE IS AT THE END OF HER SHOT AND NOT SLEEPING. PATIENT REPORTS SHE IS WORSE NOW THAN ABOUT 10 DAYS AGO BECAUSE SHE HAS NOT HAD AQUATIC THERPAY. PATIENT REPORTS SHE HAS NOT HAD A FOLLOW UP WEI'T WITH DR. PERSON SINCE STARTING PT BECAUSE THEY RE- SCHEDULED HER WEI'T FOR APR 01 2020. PATIENT RPORTS SHE IS ABOUT 50% BETTER IN TERMS OF BALANCE, FLUIDITY OF MOVING, GOING UP AND DOWN STAIRS AND GETTING UP FROM A CHAIR. SO MUCH IS BETTER. STATES THE TIGHTNESS IN HER BACK, BUTTOCKS AND LEGS IS MUCH BETTER SINCE STARTING AQUATIC THERAPY. STATES SHE WANTS TO CONTINUE AQUATIC THERAPY. LOOKING FOR A PLACE TO TRANSITION TO INDEP THERAPY. Objective/Function: PATIENT WAS SEEN TODAY FOR RE-ASSESSMENT OF PROGRESS TOWARD THE SET PT GOALS AND THE NEED FOR FURTHER PHYSICAL THERAPY VS READINESS FOR DISCHARGE. UPON EXAM TODAY SHE IS SHOWING GOOD PROGRESS TOWARD ALL PT GOALS. LUMBAR ROM STILL NT DUE TO PATIENT NOT HAVING SURGICAL FOLLOW UP YET. WE WILL CONT PT WITH NEUTRAL SPINE. OCTAVIANO LE STRENGTH IS 5/5 WITH MMT'ING NOW INCLUDING HIPS. OCTAVIANO LE WFL BUT PATIENT FEELING SOME TIGHTNESS WITH TESTING OF LEFT HIP ROTATORS COMPARED TO RIGHT. Plan Plan: MAINTAIN NEUTRAL SPINE AT THIS TIME. CONT AQUATIC THERAPY PER ORIG POC DECREASING TO 2X'S A WEEK X 4 WEEKS WHILE PATIENT STARTS TRANSITIONING TO INDEP POOL PROGRAM AT FACILITY OF HER CHOICE. Goals Goal 1:: DECREASE C/O BACK AND LLE SX'S Goal Time Frame: 4-6 Weeks Goal Progress: Progressing Goal 2:: IMPROVE ADL, LIFTING, WALKING, SITTING, STANDING, SOCIAL LIFE, TRAVEL AND HOMEMAKING FUNCTION Goal Time Frame: 4-6 Weeks Goal Progress: Progressing Goal 3:: INSTRUCT IN PROPHYLAXIS Goal Time Frame: 4-6 Weeks Goal Progress: Progressing Anticipated Interventions Patient/Client Instruction: Educate patient on: Condition, Plan of Care, Risk Factors, Benefits of Fitness Program For the Purpose of:: To improve self management Therapeutic Exercise to Include: Strength training, Body mechanics, Postural training, Flexibilty training, Gait and locomotor training, Neuromotor development, In an aquatic setting, Dynamic Lumbar Stabilization For the Purpose of:: To decrease pain, To increase ROM, To improve muscle performance and motor function, To increase tolerance to activity/condition/position, To improve ability of physical actions for home/community/work/leisure, To improve gait and locomotor functions Please do not hesitate to contact me at [phone] by phone or if you have questions or concerns regarding this new plan of care! Sincerely, Dilcia Hernandez, PT, Cert MDT
--- NOTE | 2020-04-17 14:14 | HP.PTREVAL_ITS ---
WINSTON Starr, It has been my pleasure to treat JESSIE RAYMOND over the last 20 visits for S/P L5S1 LUMBAR MICRODISECTOMY 01/01/20. Please see the progress note below for an update on the physical therapy plan of care! Subjective: PATIENT REPORTS THAT WHEN SHE HAS PT CONSISTANTLY SHE DOES WELL AND REALLY IMPROVES BUT IF SHE MISSES [place] EX [place]. PATIENT REPORTS SHE DOES NOT GET THE SAME BENEFIT [place]. REPORTS SHE JUST DOESN'T FEEL SHE HAS THE STRENGTH TO DO THE [place] AND WANTS [place] CONT[place]UE [place]. IS HOPING TO HAVE ACCESS TO A POOL NEAR HER HOME ABOUT MAY 04 2020. STATES COVID HAS MADE GETTING ACCESS TO A POOL DIFFICULT. PATIENT REPORTS HER HEADACHES ARE UNDER CONTROL NOW. PATIENT REPORTS SHE STILL INS'T LIFTING MUCH. BENDING SEEMS TO INCREASE HER LOW BACK PAIN AND ACTUALLY HER HEAD PAIN TOO THEREFORE STILL TRYING TO AVOID DOING MUCH BENDING. STILL HAVING PAIN AT NIGHT. Objective/Function: PATIENT WAS SEEN TODAY FOR RE-ASSESSMENT OF PROGRESS TOWARD THE SET PT GOALS AND THE NEED FOR FURTHER PHYSICAL THERAPY VS READINESS FOR DISCHARGE. PATIENT IS MAKING GOOD PROGRESS TOWARD ALL PT GOALS AND IS A GOOD CANDIDATE TO CONTINUE PT BASED ON PROGRESS MADE AND ROOM FOR FUTHER IMPROVEMENT. SHE DEMO'S INCREASED PAINFREE LUMBAR ROM TODAY AND IS BECOMING INDEP WITH A WATER EX PROGRAM. UPON EXAM TODAY: LUMBAR MVMT LOSS: FLEX - NIL. EXT - MOD IN STANDING AND MOD TO MINIMAL IN LYING. RIGHT SG - MOD. LEFT SG - MIN. PALPATION: TENDERNESS WITH PALPATION OF OCTAVIANO LUMBAR PARASPINALS AND INCRASED MUSCLE TONE OF LEFT PARASPINALS COMPARED TO RIGHT. OCTAVIANO LE STRENGTH IS WFL BUT CORE STRENGTH IS STILL POOR BUT IMPROVED FROM INITIAL EVAL. Plan Plan: CONT AQUATIC THERAPY 2 TIMES A WEEK X 4 WEEKS THEN DECREASE TO 1X A WEEK X 4 WEEKS TO HELP PATIENT TRANSITION TO INDEP POOL PROGRAM AND INCRASE HOME EX PRO GRAM. PATIENT IS AGREEABLE AND VERY MUCH WANTS TO CONTINUE PT. CONTINUE AQUATIC THERAPY FOR PAIN RELIEF, CORE STRENGTH AND STABILITY WITH ROM TOLERATED AND OCTAVIANO LE ROM, STRETCHING AND STRENGTHENING. Goals Goal 1:: DECREASE C/O BACK AND LLE SX'S Goal Time Frame: 4-6 Weeks Goal Progress: Progressing Goal 2:: IMPROVE ADL, LIFTING, WALKING, SITTING, STANDING, SOCIAL LIFE, TRAVEL AND HOMEMAKING FUNCTION Goal Time Frame: 4-6 Weeks Goal Progress: Progressing Goal 3:: INSTRUCT IN PROPHYLAXIS Goal Time Frame: 4-6 Weeks Goal Progress: Progressing Anticipated Interventions Patient/Client Instruction: Educate patient on: Condition, Plan of Care, Risk Factors, Benefits of Fitness Program For the Purpose of:: To improve self management Therapeutic Exercise to Include: Strength training, Body mechanics, Postural training, Flexibilty training, Gait and locomotor training, Neuromotor development, In an aquatic setting, Dynamic Lumbar Stabilization For the Purpose of:: To decrease pain, To increase ROM, To improve muscle performance and motor function, To increase tolerance to activity/condition/position, To improve ability of physical actions for home/community/work/leisure, To improve gait and locomotor functions Please do not hesitate to contact me at [phone] by phone or if you have questions or concerns regarding this new plan of care! Sincerely, Dilcia Hernandez, PT, Cert MDT
--- NOTE | 2020-08-24 19:24 | HP.PT.NRP ---
JESSIE Nuzhat RAYMOND was seen in my office for initial evaluation on 02/14/20. The following Plan of Care was established for this patient: Initial Frequency: 2-3x /Week Initial Duration: 4-6 Weeks Patient/Client Instruction: Educate patient on: Condition, Plan of Care, Risk Factors, Benefits of Fitness Program For the Purpose of:: To improve self management Therapeutic Exercise to Include: Strength training, Body mechanics, Postural training, Flexibilty training, Gait and locomotor training, Neuromotor development, In an aquatic setting, Dynamic Lumbar Stabilization For the Purpose of:: To decrease pain, To increase ROM, To improve muscle performance and motor function, To increase tolerance to activity/condition/position, To improve ability of physical actions for home/community/work/leisure, To improve gait and locomotor functions This patient was last seen in our office 06/10/20. Pertinent comments regarding their Physical therapy will appear below: This patient has not returned to Physical Therapy and is appropriate to return to MD for further follow-up as needed. At this point I will be discontinuing this patient from physical therapy. I would be happy to see this patient again in the future if found appropriate by the physician. Thank you! Dilcia Hernandez, PT, Cert MDT
== END 2020-06-10 19:00 | disposition home or self-care (01) ==
LOC: PT 10:30
PROVIDERS: PCP Internal Medicine; Referring Provider Physician Assistant; Visit Provider Physician Assistant
DX: Z98.890 Other specified postprocedural states (principal)
CPT/HCPCS: 97112; 97113; 97162; 97164; 97530

== ENCOUNTER → 2020-06-24 | Outpatient (CLI) | payer OTHER, SELFPAY ==
[2020-02-11 12:59] VITALS: BMI 31.3
[2020-07-02 14:33] LABS: HPV Reflexed? YES, CHARGE PATIENT
[2020-07-02 14:34] LABS: HPV APTIMA, High Risk Negative
== END | disposition home or self-care (01) ==
LOC: LABSPEC 12:25
PROVIDERS: PCP Internal Medicine; Referring Provider Internal Medicine; Visit Provider Internal Medicine
DX: Z12.4 Encounter for screening for malignant neoplasm of cervix (principal)
CPT/HCPCS: 87624; 88175; G0145

== ENCOUNTER → 2020-07-07 13:50 | Outpatient (CLI) | payer OTHER, SELFPAY ==
[2020-02-11 12:59] VITALS: BMI 31.3
--- NOTE | 2020-07-07 13:52 | BI_ITS ---
MAMMOGRAPHY - BILATERAL SCREENING REASON FOR EXAM: Female, 55 years old. Routine annual screening examination. PERTINENT HISTORY: Aunt with breast cancer. History of prior bilateral breast reduction surgery. TECHNIQUE: Digital bilateral breast sherin (3D mammographic acquisition) in the CC and MLO projections. 2-D mediolateral oblique (MLO) and craniocaudad (CC) views of both breasts were obtained. CAD: Full Field Digital Mammography with Computer Added Detection was performed. COMPARISON: Comparison is made with prior study dated 04/04/2019 and 01/09/2018. FINDINGS: Breast Composition: There are scattered areas of fibroglandular density. There are no dominant masses or suspicious calcifications. No other significant abnormalities are identified. There has been no significant change since the prior study. BI/SCRN MAMM (CAD)W/SHERIN BILAT IMPRESSION: Stable bilateral screening mammogram. Yearly follow-up mammogram recommended. (A) ASSESSMENT CATEGORY: BIRADS Category 1: Negative. A letter regarding these results will be sent to the patient by the facility within 30 days. Approximately 10% of breast cancers are not detected by mammography. A normal mammogram should not delay biopsy of a clinically suspicious abnormality. [id number] Electronically Signed: Kem Pool MD at 14:55 EST , Service support ,
== END ==
PROVIDERS: PCP Internal Medicine; Referring Provider Internal Medicine; Visit Provider Internal Medicine
DX: Z12.31 Encounter for screening mammogram for malignant neoplasm of breast (principal)
CPT/HCPCS: 77063; 77067

== ENCOUNTER 2021-06-05 11:30 | Outpatient (CLI) | payer OTHER, SELFPAY ==
[2021-06-05 11:53] VITALS: BP 115/58; PULSE 99; RESP 16; TEMP 37; O2SAT 98; BMI 29.4
[2021-06-05] MEDS: 0.9% Saline Lock 10 ML Syringe IV (11:56)
[2021-06-05 12:47] VITALS: BP 108/67; PULSE 81; RESP 16; TEMP 37.2; O2SAT 97
[2021-06-05 13:49] VITALS: BP 104/73; PULSE 80; RESP 16; TEMP 36.9; O2SAT 99
== END 2021-06-05 14:00 | disposition home or self-care (01) ==
LOC: MS3OUT 11:30 → MS3 11:31
PROVIDERS: PCP Internal Medicine; Referring Provider Nurse Practitioner Adult Health; Visit Provider Nurse Practitioner Adult Health
DX: U07.1 COVID-19 (principal)
CPT/HCPCS: J7050; M0245; Q0245; A4216

== ENCOUNTER → 2022-05-27 | Outpatient (CLI) | payer OTHER, SELFPAY ==
--- NOTE | 2022-05-27 12:39 | BI_ITS ---
MAMMOGRAPHY - BILATERAL SCREENING REASON FOR EXAM: Female, 57 years old. Routine annual screening examination. PERTINENT HISTORY: Aunt with breast cancer. Prior bilateral breast reduction surgery. TECHNIQUE: Digital bilateral breast sherin (3D mammographic acquisition) in the CC and MLO projections. 2-D mediolateral oblique (MLO) and craniocaudad (CC) views of both breasts were obtained. CAD: Full Field Digital Mammography with Computer Added Detection was performed. COMPARISON: Comparison is made with prior study dated 07/07/2020 and 04/04/2019. FINDINGS: Breast Composition: There are scattered areas of fibroglandular density. There are no dominant masses or suspicious calcifications. No other significant abnormalities are identified. There has been no significant change since the prior study. BI/SCRN MAMM (CAD)W/SHERIN BILAT IMPRESSION: Stable bilateral screening mammogram. Yearly follow-up mammogram recommended. (A) ASSESSMENT CATEGORY: BIRADS Category 1: Negative. A letter regarding these results will be sent to the patient by the facility within 30 days. Approximately 10% of breast cancers are not detected by mammography. A normal mammogram should not delay biopsy of a clinically suspicious abnormality. [id number] Electronically Signed: Kem Pool MD at 13:24 EST ,
== END | disposition home or self-care (01) ==
LOC: OPBI 12:33
PROVIDERS: PCP Internal Medicine; Referring Provider Internal Medicine; Visit Provider Internal Medicine
DX: Z12.31 Encounter for screening mammogram for malignant neoplasm of breast (principal); Z80.3 Family history of malignant neoplasm of breast
CPT/HCPCS: 77063; 77067

== ENCOUNTER → 2023-01-06 | Outpatient (CLI) | payer OTHER, SELFPAY ==
--- NOTE | 2023-01-06 12:38 | US_ITS ---
EXAM: US PELVIS TRANSABDOMINAL, COMPLETE CLINICAL INDICATION: Pelvic pain in female TECHNIQUE: Transabdominal pelvic ultrasound was performed with grayscale and color Doppler imaging. COMPARISON: No relevant prior studies available. FINDINGS: UTERUS/CERVIX: The uterus measures 8.6 x 3.2 x 4.9 cm. The endometrium measures 3 mm. Anteverted. There is no uterine mass. RIGHT OVARY: The right ovary measures 3.0 x 1.8 x 2.4 cm. Blood flow is present in the right ovary. LEFT OVARY: The left ovary measures 2.2 x 1.6 x 1.6 cm. Blood flow is present in the left ovary. FREE FLUID: None. BLADDER: The bladder measures 9.9 x 7.6 x 8.1 cm for a volume of 320 mL. US/Pelvic (Non ) IMPRESSION: No acute findings in the pelvis. Electronically Signed: Main Knox MD at 0:07 EDT ,
== END | disposition home or self-care (01) ==
PROVIDERS: PCP Internal Medicine; Referring Provider Internal Medicine; Visit Provider Internal Medicine
DX: R10.2 Pelvic and perineal pain (principal)
CPT/HCPCS: 76856

== ENCOUNTER → 2024-03-29 | Outpatient (CLI) | payer OTHER, SELFPAY ==
--- NOTE | 2024-03-29 09:21 | BD_ITS ---
STUDY: DUAL ENERGY X-RAY ABSORPTIOMETRY / DXA REASON FOR EXAM: Female, 59 years old. V76.12ScreeningBONE DENSITY REASON FOR EXAM TECHNIQUE: Bone Mineral Density (BMD) measurements of lumbar spine and bilateral hips were obtained. COMPARISON: None. FINDINGS: Lumbar Spine (L1-L4): g/cm2 (0.645) / T-score (-3.9) / Z-score (-2.5) Findings are suggestive of osteoporosis with a high fracture risk. Left Femur Total: g/cm2 (0.741) / T-score (-1.6) / Z-score (by 0.7) Left Femoral Neck: g/cm2 (0.492) / T-score (-3.2) / Z-score (-1.9) Right Femur Total: g/cm2 (0.787) / T-score (-1.3) / Z-score (-0.3) Right Femoral Neck: g/cm2 (0.645) / T-score (-1.8) / Z-score (-0.5) BD/Dexa Bone Density Study IMPRESSION: The patient is considered osteoporotic as outlined below according to World Rasha[employer] Organization (WHO) criteria with a high fracture risk. Reference Information: The T-score is the number of standard deviations above or below the standard which is normal for young adults at their peak bone mineral density. The World Health Organization (WHO) interprets the T-scores as follows: Above -1 Normal bone density Between -1 and -2.5 Osteopenia Equal to / or below -2.5 Osteoporosis As a practical clinical guideline, osteopenia may be graded as follows: Mild -1 through -1.5 Moderate -1.6 through -2.0 Severe -2.1 through -2.4 The Z-score is the number of standard deviations above or below age-matched controls. A Z-score of less than -1.5 would be considered abnormal. References: 1. NIH Osteoporosis and Related Bone Diseases www osteo.org 2. International Society for Clinical Densitometry www iscd.org 3. National Osteoporosis Foundation www nof.org Electronically Signed: Kem Pool MD at 10:35 EDT ,
--- NOTE | 2024-03-29 09:32 | BI_ITS ---
MAMMOGRAPHY - BILATERAL SCREENING REASON FOR EXAM: Female, 59 years old. Routine annual screening examination. PERTINENT HISTORY: Aunt with breast cancer. History of prior bilateral breast reduction surgery. TECHNIQUE: Digital bilateral breast sherin (3D mammographic acquisition) in the CC and MLO projections. 2-D mediolateral oblique (MLO) and craniocaudad (CC) views of both breasts were obtained. CAD: Full Field Digital Mammography with Computer Added Detection was performed. COMPARISON: Comparison is made with prior study dated May 27, 2022 and July 07, 2020. FINDINGS: Breast Composition: There are scattered areas of fibroglandular density. There are no dominant masses or suspicious calcifications. No other significant abnormalities are identified. There has been no significant change since the prior study. BI/SCRN MAMM (CAD)W/SHERIN BILAT IMPRESSION: Stable bilateral screening mammogram. Yearly follow-up mammogram recommended. (A) ASSESSMENT CATEGORY: BIRADS Category 1: Negative. A letter regarding these results will be sent to the patient by the facility within 30 days. Approximately 10% of breast cancers are not detected by mammography. A normal mammogram should not delay biopsy of a clinically suspicious abnormality. [id number] Electronically Signed: Kem Pool MD at 11:31 EDT ,
== END | disposition home or self-care (01) ==
LOC: OPBD 09:17
PROVIDERS: PCP Internal Medicine; Visit Provider Internal Medicine
DX: Z12.31 Encounter for screening mammogram for malignant neoplasm of breast (principal); Z78.0 Asymptomatic menopausal state
CPT/HCPCS: 77063; 77067; 77080